=== PATIENT | female | born 1945 | race Caucasian/White ===

== ENCOUNTER 2017-12-19 16:43 | Observation (INO) ==
[2017-12-19] MEDS ORDERED: methylPREDNISolone 125 MG/2 ML VIAL IVP ONE (17:05)
[2017-12-19] MEDS ORDERED: Ipratropium/Albuterol Neb 3 ML IH ONE (17:05)
--- NOTE | 2017-12-19 17:08 | Emergency Department Note ---
Disposition Clinical Impression: Weakness, Shortness of breath, Acute kidney injury, COPD with acute exacerbation Fall Qualifiers: Encounter type: initial encounter Qualified Code(s): W19.XXXA - Unspecified fall, initial encounter Disposition: Admitted As Inpatient Condition: Fair Referrals: Dixie Nielsen CNP [Primary Care Provider] - Forms: ED Satisfaction Letter Time of Disposition: 18:48 General Adult HPI - General Chief complaint: ED Fall Stated complaint: Fall Time Seen by Provider: 12/19/17 16:53 Source: EMS Nursing Notes Reviewed: Yes Vital Signs Reviewed: Yes - History of Present Illness HPI Narrative: 72-year-old female presents from home via EMS for evaluation after fall. She lives at home alone. She was ambulating with her walker and felt weak causing her to fall. She did not hit her head. No loss of consciousness. She denies any injuries. She notes her generalized weakness is exacerbated by her dyspnea which she believes is secondary to her COPD. She has a history of asthma with prolonged exposure to secondhand smoke. She herself has never smoked tobacco. Her concern at this time is shortness of breath. EMS reports the patient had chest pain rated 8/10 which radiated down her right arm with right arm weakness. Patient denies chest pain at this time. She has a history of chronic right arm weakness currently evaluated by neurology and on prednisone. She does have a history of cardiac stent 6. She has a history of COPD on 2 L nasal cannula at baseline with pro-air; these are not improving her dyspnea. She does have a worsening of her chronic cough with clear/white sputum. PMH: COPD on 2 L nasal cannula, pro-air. CAD with ACS status post stent 6. No history of CHF. ROS: Positive: As above Negative: Fever, chills, nausea, vomiting, chest pains, palpitations, diaphoresis, abdominal pain, unusual back pain, neck pain, headache, changes in vision, focal weakness, numbness or tingling. Pain Scale: 5 - Related Data Home Medications Medication Instructions Recorded Confirmed Aspirin 81 mg PO DAILY 12/07/14 11/17/16 Citalopram [CeleXA] 20 mg PO DAILY 12/07/14 11/17/16 Levothyroxine [Synthroid] 100 mcg PO 0630 12/07/14 11/17/16 Meclizine [Antivert] 25 mg PO TID PRN 12/07/14 11/17/16 Nitroglycerin 1 tab SL PRN PRN 12/07/14 11/17/16 Oxybutynin [Ditropan] 5 mg PO BID 12/07/14 11/17/16 Pravastatin Sodium [Pravachol] 80 mg PO HS 12/07/14 11/17/16 Pregabalin [Lyrica] 50 mg PO BID 12/07/14 11/17/16 Ranitidine HCl [Zantac] 150 mg PO BID 12/07/14 11/17/16 Ticagrelor [Brilinta] 90 mg PO BID 12/07/14 11/17/16 TraMADol [Ultram] 50 mg PO Q6HR 12/07/14 11/17/16 Cholecalciferol (Vitamin D3) 1,000 unit PO DAILY 05/01/15 11/17/16 [Vitamin D3] Oxygen 2 l .ROUTE AD 05/01/15 11/17/16 Previous Rx's Medication Instructions Recorded Lactobacillus [Culturelle] 1 each PO BID #6 cap.sprink 07/18/16 HydrOXYzine Pamoate [Vistaril] 50 mg PO TID #30 capsule 03/10/17 Allergies Allergy/AdvReac Type Severity Reaction Status Date / Time budesonide [From Symbicort] Allergy Swelling Verified 12/19/17 16:54 of Lip/Tongue/Throat carvedilol [From Coreg] Allergy Swelling Verified 12/19/17 16:54 of Lip/Tongue/Throat cephalexin [From Keflex] Allergy Swelling Verified 12/19/17 16:54 of Lip/Tongue/Throat ciprofloxacin [From Cipro] Allergy Anaphylaxis Verified 12/19/17 16:54 Formoterol [From Symbicort] Allergy Swelling Verified 12/19/17 16:54 of Lip/Tongue/Throat gabapentin [From Neurontin] Allergy Swelling Verified 12/19/17 16:54 of Lip/Tongue/Throat lisinopril Allergy Headache Verified 12/19/17 16:54 shellfish derived Allergy Anaphylaxis Verified 12/19/17 16:54 Sulfa (Sulfonamide Allergy Hives Verified 12/19/17 16:54 Antibiotics) sulfamethoxazole Allergy Hives Verified 12/19/17 16:54 [From Bactrim] trimethoprim [From Bactrim] Allergy Hives Verified 12/19/17 16:54 venom-honey bee Allergy Anaphylaxis Verified 12/19/17 16:54 [bee venom (honey bee)] metformin AdvReac Dizziness Verified 12/19/17 16:54 IVP DYE Allergy Swelling Uncoded 07/16/16 15:07 of Lip/Tongue/Throat All systems ED: reviewed and negative except as stated. Review of Systems: As Per HPI Past Medical History - Past Medical History Medical history: Reports: asthma, COPD, coronary artery disease, CVA, diabetes, hypertension, renal disease Surgical history: Reports: angioplasty/stent, cholecystectomy, KAYY/BSO Psychiatric history: Reports: depression - Social History Smoking Status: Never smoker Smokeless Tobacco Status: No Alcohol use: Reports: none Drug use: Reports: none Physical Exam Vital Signs Reviewed General: Patient is alert, oriented, and in mild distress-she has 3-4 conversational dyspnea, tachypneic. Head: atraumatic, normocephalic Eye: normal appearance, PERRL, EOMI, no scleral icterus, no conjunctival injection ENT: mucous membranes moist, normal external ear exam Neck: normal inspection, trachea midline, full ROM Chest: normal inspection, symmetric chest rise Respiratory: Good respiratory effort. Prolonged expiratory phase. Poor air entry the bilateral bases with an expiratory wheeze. Bilateral breath sounds equal without crackles or rhonchi. Cardiovascular: Regular rate and rhythm. No clicks, rubs, gallops, or murmors. Normal heart sounds. Bilateral radial and posterior tibial pulses 2/4. No pedal edema. Abdomen: Bowel sounds present normoactive x-4 quadrants. Abdomen is soft, nondistended, and nontender. No guarding or rebound. Musculoskeletal: Spontaneously moving all extremities. Skin: warm, dry, intact. Neuro: Alert and oriented x4. Sensation light touch intact. Psych: Patient's affect is appropriate for situation. - General General appearance: alert, in no apparent distress Course Course Narrative: Patient's chart shows an allergy to formoterol however, she is on pro-air at home which is albuterol. We will provide DuoNeb's in the hospital. Patient's chart shows an allergy to budesonide. She is on prednisone at home. We will provide SoluMedrol IV. EKG dated 12/19/2017 at 16:58 interpreted as sinus tachycardia with a rate of 102. NC 133, QRS 90, QTC 550. Left axis. Right anterior fascicular block. Nonspecific ST-T changes. Compared to previous EKG dated July 15 showing no acute ischemic changes or comparison. Serum hematology is unremarkable. Serum chemistry shows elevation creatinine; acute kidney injury. 500 mL fluid bolus provided. Caution given her cardiac history. BNP is not elevated and she has no physical exam findings of edema. Chest x-ray shows no acute findings. EKG shows no acute ischemic changes. Troponin below upper limit of normal. Patient provided with a triple dose of DuoNeb's as well as 125 mg Solu-Medrol. She did not have allergic reaction. She did have improved air entry however, remains tachypneic with an expiratory wheeze. Clinical suspicion is for acute exacerbation of COPD. I discussed the above the patient. She is agreeable to admission for continued pulmonary support. I discussed the above the admitting hospitalist. He is agreeable to admission. Chest X-Ray 12/19/17 16:56 IMPRESSION: No acute findings. No change. D/ / 12/19/2017 17:58:55 Patrick Mazariegos MD / ivette Interpreting Provider: Patrick Mazariegos MD Vital Signs Temperature 99.9 F H 12/19/17 16:48 Pulse Rate 99 12/19/17 16:48 Respiratory Rate 16 12/19/17 16:48 Blood Pressure 125/79 12/19/17 16:48 O2 Sat by Pulse Oximetry 95 12/19/17 16:48 Temperature 99.9 F H 12/19/17 16:48 Pulse Rate 106 12/19/17 17:53 Respiratory Rate 28 12/19/17 17:53 Blood Pressure 129/80 12/19/17 17:53 O2 Sat by Pulse Oximetry 94 12/19/17 17:53 Oxygen Delivery Oxygen Delivery Nasal Cannula Medical Decision Making - Lab Data Result diagrams: 12/19/17 16:56 12/19/17 16:56 Lab Results 12/19/17 12/19/17 12/19/17 Range/Units 16:56 16:56 16:56 WBC 11.0 (4.3-11.1) K/mcL RBC 4.40 (3.82-4.97) M/mcL Hgb 12.8 (11.5-15.4) g/dL Hct 39.1 (35.3-44.9) % MCV 88.9 (83.0-100.0) fL MCH 29.1 (28.0-33.3) pg MCHC 32.7 (31.6-35.5) g/dL RDW 13.0 (11.5-14.5) % Plt Count 176 (140-400) K/mcL MPV 9.8 (9.4-12.4) fL Immature Gran % 0.5 (0-4) % Seg Neutrophils % 76.5 % Lymphocytes % 11.9 % Monocytes % 10.7 % Eosinophils % 0.1 % Basophils % 0.3 % Neutrophils # 8.4 (1.6-8.9) K/mcL Lymphocytes # 1.3 (0.6-4.6) K/mcL Monocytes # 1.2 (0.0-1.3) K/mcL Eosinophils # 0.0 (0.0-0.6) K/mcL Basophils # 0.0 (0.0-0.2) K/mcL Sodium 134 L (136-145) mEq/L Potassium 4.1 (3.5-5.1) mEq/L Chloride 95 L (98-107) mEq/L Carbon Dioxide 25 (23-29) mEq/L BUN 26 H (8-23) mg/dL Creatinine 2.07 H (0.60-1.20) mg/dL Est GFR ( Amer) 28 L (> 60) Est GFR (Non-Af Amer) 23 L (> 60) BUN/Creatinine Ratio 13 (6-26) Glucose 146 H (70-105) mg/dL Calculated Osmolality 285 (280-300) Lactic Acid (0.5-2.2) mmol/L Calcium 8.6 (8.6-10.3) mg/dL Troponin I < 0.03 (< 0.04) ng/mL B-Natriuretic Peptide 51 (Less than 100) pg/mL 12/19/17 Range/Units 17:03 WBC (4.3-11.1) K/mcL RBC (3.82-4.97) M/mcL Hgb (11.5-15.4) g/dL Hct (35.3-44.9) % MCV (83.0-100.0) fL MCH (28.0-33.3) pg MCHC (31.6-35.5) g/dL RDW (11.5-14.5) % Plt Count (140-400) K/mcL MPV (9.4-12.4) fL Immature Gran % (0-4) % Seg Neutrophils % % Lymphocytes % % Monocytes % % Eosinophils % % Basophils % % Neutrophils # (1.6-8.9) K/mcL Lymphocytes # (0.6-4.6) K/mcL Monocytes # (0.0-1.3) K/mcL Eosinophils # (0.0-0.6) K/mcL Basophils # (0.0-0.2) K/mcL Sodium (136-145) mEq/L Potassium (3.5-5.1) mEq/L Chloride (98-107) mEq/L Carbon Dioxide (23-29) mEq/L BUN (8-23) mg/dL Creatinine (0.60-1.20) mg/dL Est GFR ( Amer) (> 60) Est GFR (Non-Af Amer) (> 60) BUN/Creatinine Ratio (6-26) Glucose (70-105) mg/dL Calculated Osmolality (280-300) Lactic Acid 1.3 (0.5-2.2) mmol/L Calcium (8.6-10.3) mg/dL Troponin I (< 0.04) ng/mL B-Natriuretic Peptide (Less than 100) pg/mL
--- NOTE | 2017-12-19 17:12 | Emergency Department Note ---
Disposition Clinical Impression: Weakness, Shortness of breath, Acute kidney injury, COPD with acute exacerbation Fall Qualifiers: Encounter type: initial encounter Qualified Code(s): W19.XXXA - Unspecified fall, initial encounter Disposition: Admitted As Inpatient Condition: Fair Referrals: Dixie Nielsen CNP [Primary Care Provider] - Forms: ED Satisfaction Letter General Adult HPI - General Chief complaint: ED Fall Stated complaint: Fall Time Seen by Provider: 12/19/17 16:53 Source: EMS - History of Present Illness Pain Scale: 5 - Related Data Home Medications Medication Instructions Recorded Confirmed Aspirin 81 mg PO DAILY 12/07/14 11/17/16 Citalopram [CeleXA] 20 mg PO DAILY 12/07/14 11/17/16 Levothyroxine [Synthroid] 100 mcg PO 0630 12/07/14 11/17/16 Meclizine [Antivert] 25 mg PO TID PRN 12/07/14 11/17/16 Nitroglycerin 1 tab SL PRN PRN 12/07/14 11/17/16 Oxybutynin [Ditropan] 5 mg PO BID 12/07/14 11/17/16 Pravastatin Sodium [Pravachol] 80 mg PO HS 12/07/14 11/17/16 Pregabalin [Lyrica] 50 mg PO BID 12/07/14 11/17/16 Ranitidine HCl [Zantac] 150 mg PO BID 12/07/14 11/17/16 Ticagrelor [Brilinta] 90 mg PO BID 12/07/14 11/17/16 TraMADol [Ultram] 50 mg PO Q6HR 12/07/14 11/17/16 Cholecalciferol (Vitamin D3) 1,000 unit PO DAILY 05/01/15 11/17/16 [Vitamin D3] Oxygen 2 l .ROUTE AD 05/01/15 11/17/16 Previous Rx's Medication Instructions Recorded Lactobacillus [Culturelle] 1 each PO BID #6 cap.sprink 07/18/16 HydrOXYzine Pamoate [Vistaril] 50 mg PO TID #30 capsule 03/10/17 Allergies Allergy/AdvReac Type Severity Reaction Status Date / Time budesonide [From Symbicort] Allergy Swelling Verified 12/19/17 16:54 of Lip/Tongue/Throat carvedilol [From Coreg] Allergy Swelling Verified 12/19/17 16:54 of Lip/Tongue/Throat cephalexin [From Keflex] Allergy Swelling Verified 12/19/17 16:54 of Lip/Tongue/Throat ciprofloxacin [From Cipro] Allergy Anaphylaxis Verified 12/19/17 16:54 Formoterol [From Symbicort] Allergy Swelling Verified 12/19/17 16:54 of Lip/Tongue/Throat gabapentin [From Neurontin] Allergy Swelling Verified 12/19/17 16:54 of Lip/Tongue/Throat lisinopril Allergy Headache Verified 12/19/17 16:54 shellfish derived Allergy Anaphylaxis Verified 12/19/17 16:54 Sulfa (Sulfonamide Allergy Hives Verified 12/19/17 16:54 Antibiotics) sulfamethoxazole Allergy Hives Verified 12/19/17 16:54 [From Bactrim] trimethoprim [From Bactrim] Allergy Hives Verified 12/19/17 16:54 venom-honey bee Allergy Anaphylaxis Verified 12/19/17 16:54 [bee venom (honey bee)] metformin AdvReac Dizziness Verified 12/19/17 16:54 IVP DYE Allergy Swelling Uncoded 07/16/16 15:07 of Lip/Tongue/Throat Past Medical History - Past Medical History Medical history: Reports: asthma, COPD, coronary artery disease, CVA, diabetes, hypertension, renal disease Surgical history: Reports: angioplasty/stent, cholecystectomy, KAYY/BSO Psychiatric history: Reports: depression - Social History Smoking Status: Never smoker Smokeless Tobacco Status: No Alcohol use: Reports: none Drug use: Reports: none Physical Exam - General General appearance: alert, in no apparent distress Course Vital Signs Temperature 99.9 F H 12/19/17 16:48 Pulse Rate 99 12/19/17 16:48 Respiratory Rate 16 12/19/17 16:48 Blood Pressure 125/79 12/19/17 16:48 O2 Sat by Pulse Oximetry 95 12/19/17 16:48 Temperature 99.9 F H 12/19/17 16:48 Pulse Rate 106 12/19/17 17:53 Respiratory Rate 28 12/19/17 17:53 Blood Pressure 129/80 12/19/17 17:53 O2 Sat by Pulse Oximetry 94 12/19/17 17:53 Oxygen Delivery Oxygen Delivery Nasal Cannula Medical Decision Making - Lab Data Result diagrams: 12/19/17 16:56 12/19/17 16:56 Lab Results 12/19/17 12/19/17 12/19/17 Range/Units 16:56 16:56 16:56 WBC 11.0 (4.3-11.1) K/mcL RBC 4.40 (3.82-4.97) M/mcL Hgb 12.8 (11.5-15.4) g/dL Hct 39.1 (35.3-44.9) % MCV 88.9 (83.0-100.0) fL MCH 29.1 (28.0-33.3) pg MCHC 32.7 (31.6-35.5) g/dL RDW 13.0 (11.5-14.5) % Plt Count 176 (140-400) K/mcL MPV 9.8 (9.4-12.4) fL Immature Gran % 0.5 (0-4) % Seg Neutrophils % 76.5 % Lymphocytes % 11.9 % Monocytes % 10.7 % Eosinophils % 0.1 % Basophils % 0.3 % Neutrophils # 8.4 (1.6-8.9) K/mcL Lymphocytes # 1.3 (0.6-4.6) K/mcL Monocytes # 1.2 (0.0-1.3) K/mcL Eosinophils # 0.0 (0.0-0.6) K/mcL Basophils # 0.0 (0.0-0.2) K/mcL Sodium 134 L (136-145) mEq/L Potassium 4.1 (3.5-5.1) mEq/L Chloride 95 L (98-107) mEq/L Carbon Dioxide 25 (23-29) mEq/L BUN 26 H (8-23) mg/dL Creatinine 2.07 H (0.60-1.20) mg/dL Est GFR ( Amer) 28 L (> 60) Est GFR (Non-Af Amer) 23 L (> 60) BUN/Creatinine Ratio 13 (6-26) Glucose 146 H (70-105) mg/dL Calculated Osmolality 285 (280-300) Lactic Acid (0.5-2.2) mmol/L Calcium 8.6 (8.6-10.3) mg/dL Troponin I < 0.03 (< 0.04) ng/mL B-Natriuretic Peptide 51 (Less than 100) pg/mL 12/19/17 Range/Units 17:03 WBC (4.3-11.1) K/mcL RBC (3.82-4.97) M/mcL Hgb (11.5-15.4) g/dL Hct (35.3-44.9) % MCV (83.0-100.0) fL MCH (28.0-33.3) pg MCHC (31.6-35.5) g/dL RDW (11.5-14.5) % Plt Count (140-400) K/mcL MPV (9.4-12.4) fL Immature Gran % (0-4) % Seg Neutrophils % % Lymphocytes % % Monocytes % % Eosinophils % % Basophils % % Neutrophils # (1.6-8.9) K/mcL Lymphocytes # (0.6-4.6) K/mcL Monocytes # (0.0-1.3) K/mcL Eosinophils # (0.0-0.6) K/mcL Basophils # (0.0-0.2) K/mcL Sodium (136-145) mEq/L Potassium (3.5-5.1) mEq/L Chloride (98-107) mEq/L Carbon Dioxide (23-29) mEq/L BUN (8-23) mg/dL Creatinine (0.60-1.20) mg/dL Est GFR ( Amer) (> 60) Est GFR (Non-Af Amer) (> 60) BUN/Creatinine Ratio (6-26) Glucose (70-105) mg/dL Calculated Osmolality (280-300) Lactic Acid 1.3 (0.5-2.2) mmol/L Calcium (8.6-10.3) mg/dL Troponin I (< 0.04) ng/mL B-Natriuretic Peptide (Less than 100) pg/mL Attestation Statement - Attestation Attestation: I examined this patient and my medical decision-making was reviewed with the Resident Physician. I agree with the documented findings, disposition and treatment plan as described except to the extent set forth below. Patient presents to the ED with generalized weakness and shortness of breath. Patient states she has been weak. She missed step today with her cane. She fell backwards onto her bottom. Patient states she was too weak to get up so she can her life alert button. Denies hitting her head. Denies injury. No back or neck pain. Patient states she short of breath. She complained of chest pain EMS but denies after us. Patient has a history of COPD. On examination she is in no distress. Awake alert oriented. Moving all extremities. Abdomen soft. Lungs with expiratory wheezing. Plan. Patient appears to have a COPD exacerbation. Nebs steroids. Weakness workup. Patient lives alone. Concern for her safety. Patient received IV hydration for her AK I. Admitting to medicine.
[2017-12-19 17:17] LABS: Basophils % 0.3 %; Eosinophils % 0.1 %; Hematocrit 39.1 % (35.3-44.9); Hemoglobin 12.8 g/dL (11.5-15.4); Immature Granulocytes % 0.5 % (0-4); Lymphocytes # 1.3 K/mcL (0.6-4.6); Lymphocytes % 11.9 %; Mean Corpuscular HGB Conc 32.7 g/dL (31.6-35.5); Mean Corpuscular Hemoglobin 29.1 pg (28.0-33.3); Mean Corpuscular Volume 88.9 fL (83.0-100.0); Mean Platelet Volume 9.8 fL (9.4-12.4); Monocytes # 1.2 K/mcL (0.0-1.3); Monocytes % 10.7 %; Neutrophils # 8.4 K/mcL (1.6-8.9); Platelet Count 176 K/mcL (140-400); Segmented Neutrophils % 76.5 %
[2017-12-19 17:36] LABS: BUN/Creatinine Ratio 13 (6-26); Blood Urea Nitrogen 26 mg/dL (8-23); Calcium 8.6 mg/dL (8.6-10.3); Carbon Dioxide 25 mEq/L (23-29); Chloride 95 mEq/L (98-107); Glucose 146 mg/dL (70-105); Osmolality,Calculated 285 (280-300); Potassium 4.1 mEq/L (3.5-5.1); Sodium 134 mEq/L (136-145); eGFR For Non-African Americans 23 (> 60)
[2017-12-19 17:37] LABS: Troponin I < 0.03 ng/mL (< 0.04)
[2017-12-19] MEDS ORDERED: 0.9 % Sodium Chloride 500 ML IVC ONE (18:45)
[2017-12-20] MEDS ORDERED: Naloxone 0.4 MG/ML INJ IVP PRN (00:14)
[2017-12-20] MEDS ORDERED: 0.9 % Sodium Chloride 1,000 ML IVC ONE (00:19)
[2017-12-20 01:51] LABS: Bilirubin,Urine Negative (Negative); Blood,Urine Negative (Negative); Clarity,Urine Cloudy (Clear); Color,Urine Yellow (Yellow); Glucose,Urine (UA) Normal (Normal); Ketones,Urine Negative (Negative); Leukocyte Esterase,Urine Moderate (Negative); Nitrite,Urine Negative (Negative); PH,Urine 5.5 pH Units (5.0-8.0); Protein,Urine Negative (Neg-Trace); Specific Gravity,Urine 1.016 (1.010-1.025); Urobilinogen,Urine Normal (Normal)
[2017-12-20 01:53] LABS: Bacteria,Urine Many per hpf (None-Few); Hyaline Casts,Urine None Seen per lpf (None-Few); RBC,Urine 0-3 per hpf (0-3); Squamous Epithelial Cell,Urine Many per lpf (None-Few); WBC,Urine 50-100 per hpf (0-3)
[2017-12-20] MEDS: Ipratropium/Albuterol Neb 3 ML IH SCH ×4 (04:22→22:33)
[2017-12-20] MEDS: *HR* Heparin 5,000 UNIT/ML VIAL SQ SCH ×2 (05:12→16:52)
--- NOTE | 2017-12-20 06:29 | Internal Med History&Physical ---
Date of Encounter: 12/19/17 Time of Encounter: 23:30 Internal Medicine - H&P: HPI Chief complaint: COPD exacerbation Admitted From: Emergency Dept Plans for Post Hospital Care: Home History of present illness: Ms. Busby is a 72 year old female Patient was at home, has had increased weakness due to shortness of breath which resulted in a fall. She says that she had gotten up and went to her kitchen to get something to eat and felt weak so she went to laid down for a bit. Afterwards she went back to her kitchen and again felt weak but this time had a fall, stating that her legs folded up underneath her and she went down. She denies hitting her head and losing consciousness. She says this has happened to her before about 6 months ago in a similar way. She states that she feels more weak as she has shortness of breath. She denies chest pain currently but had some about 3 days ago. She has history of a stroke about 2 years ago and has been on Brilinta and aspirin. She has residual right arm weakness since her last stroke. She came to the emergency room for further evaluation. In the ER CBC was within normal limits. Vital signs are stable with a slightly elevated temperature of 99.9. BMP showed elevated BUN and creatinine, though patient has a history of chronic kidney disease. EKG was performed showed normal sinus rhythm with a QTC of 550. There are no ST changes and no changes from her previous EKGs on file. Chest x-ray showed no acute findings. She was given a 500 mL saline bolus as well as duo nebs and sent to the medical floor for further management. Upon my evaluation patient states that she has a history of 6 cardiac stents, and has a baseline oxygen requirement of 2 L all the time. She has inhalers at home but they were not helping her. She denies nausea, vomiting, fever, chills and abdominal pain. She has a history of chronic kidney disease and does follow-up with nephrology. Past Med Surg Social Fam HX - Past Medical History Medical history: asthma, COPD, coronary artery disease, CVA, diabetes, hypertension, renal disease Additional medical history: CVA " years ago" with right sided weakenss Psychiatric history: depression - Past Surgical History Surgical History: angioplasty/stent, cholecystectomy, KAYY/BSO Additional surgical history: heart stent x5. Hysterectomy - Social History Smoking Status: Never smoker Smokeless Tobacco Status: No Alcohol use: none Drug use: none - Family History Father Adopted: No Age: 86 Living Status: Hx Family Cardiac Disorders: No Hx Family Respiratory Disorders: Yes Hx Family Cancer: No Hx Family GI Disorders: No Hx Family Genitourinary Disorders: No Hx Family Endocrine Disorder: No Hx Family Musculoskeletal Disorders: No Hx Family Neuromuscular Disorders: No Hx Family Neurologic Disorders: No Hx Family HEENT Disorders: No Hx Family Autoimmune Disorders: No Hx Family Reproductive Disorders: No Hx Family Psychosocial Disorders: No Hx Family Medical Disorders: No Internal Medicine - H&P: Meds Aspirin 81 mg PO DAILY 12/07/14 [History] Citalopram [CeleXA] 20 mg PO DAILY 12/07/14 [History] Levothyroxine [Synthroid] 100 mcg PO 0630 12/07/14 [History] Meclizine [Antivert] 25 mg PO TID PRN 12/07/14 [History] Nitroglycerin 1 tab SL PRN PRN 12/07/14 [History] Oxybutynin [Ditropan] 5 mg PO BID 12/07/14 [History] Pravastatin Sodium [Pravachol] 80 mg PO HS 12/07/14 [History] Pregabalin [Lyrica] 50 mg PO BID 12/07/14 [History] Ranitidine HCl [Zantac] 150 mg PO BID 12/07/14 [History] Ticagrelor [Brilinta] 90 mg PO BID 12/07/14 [History] TraMADol [Ultram] 50 mg PO Q6HR 12/07/14 [History] Cholecalciferol (Vitamin D3) [Vitamin D3] 1,000 unit PO DAILY 05/01/15 [History] Oxygen 2 l .ROUTE AD 05/01/15 [History] Lactobacillus [Culturelle] 1 each PO BID #6 cap.sprink 07/18/16 [Rx] HydrOXYzine Pamoate [Vistaril] 50 mg PO TID #30 capsule 03/10/17 [Rx] Allergy/AdvReac Type Severity Reaction Status Date / Time budesonide [From Symbicort] Allergy Swelling Verified 12/19/17 16:54 of Lip/Tongue/Throat carvedilol [From Coreg] Allergy Swelling Verified 12/19/17 16:54 of Lip/Tongue/Throat cephalexin [From Keflex] Allergy Swelling Verified 12/19/17 16:54 of Lip/Tongue/Throat ciprofloxacin [From Cipro] Allergy Anaphylaxis Verified 12/19/17 16:54 gabapentin [From Neurontin] Allergy Swelling Verified 12/19/17 16:54 of Lip/Tongue/Throat lisinopril Allergy Headache Verified 12/19/17 16:54 shellfish derived Allergy Anaphylaxis Verified 12/19/17 16:54 Sulfa (Sulfonamide Allergy Hives Verified 12/19/17 16:54 Antibiotics) sulfamethoxazole Allergy Hives Verified 12/19/17 16:54 [From Bactrim] trimethoprim [From Bactrim] Allergy Hives Verified 12/19/17 16:54 venom-honey bee Allergy Anaphylaxis Verified 12/19/17 16:54 [bee venom (honey bee)] metformin AdvReac Dizziness Verified 12/19/17 16:54 IVP DYE Allergy Swelling Uncoded 07/16/16 15:07 of Lip/Tongue/Throat All Systems PM: A 10-system review of systems was performed and is negative for pertinent findings except as documented above in the HPI. - Constitutional Vitals: Temp Pulse Resp BP Pulse Ox 97.8 F 74 18 117/63 94 12/20/17 03:50 12/20/17 03:50 12/20/17 04:22 12/20/17 03:50 12/20/17 04:22 General appearance: Present: cooperative, A&O X 3, pleasant, no acute distress, answers questions appropriately Exam: As above - Head Head exam: Present: normal inspection - Eye Eye exam: Present: EOMI, normal appearance - Neck Neck exam general surgery: Absent: tenderness - Respiratory Respiratory exam: Present: wheezes. Absent: chest wall tenderness, decreased breath sounds, CTAB, rales, respiratory distress, rhonchi Additional comments: Mild wheezes - Cardiovascular Cardiovascular exam: Present: RRR. Absent: diastolic murmur, systolic murmur - GI/Abdominal GI/Abdominal exam: Present: normal bowel sounds, soft. Absent: tenderness - Extremities Exam Extremities exam: Present: warm, radial pulses palpable and symmetrical. Absent: calf tenderness, pedal edema, tenderness - Neurological Exam Neurological exam: Present: motor sensory deficit, no focal deficits. 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 Chronic, no change from baseline - Skin Skin exam: Present: dry, normal color, warm Internal Med - H&P Results - Labs CBC & Chem 7: 12/19/17 16:56 12/19/17 16:56 Labs: Short CBC 12/19/17 Range/Units 16:56 WBC 11.0 (4.3-11.1) K/mcL Hgb 12.8 (11.5-15.4) g/dL Hct 39.1 (35.3-44.9) % Plt Count 176 (140-400) K/mcL Neutrophils # 8.4 (1.6-8.9) K/mcL BMP 12/19/17 16:56 Sodium 134 L Potassium 4.1 Chloride 95 L Carbon Dioxide 25 BUN 26 H Creatinine 2.07 H Glucose 146 H Calcium 8.6 Cardiac Enzymes 12/19/17 Range/Units 16:56 Troponin I < 0.03 (< 0.04) ng/mL Urine 12/20/17 Range/Units 01:40 Urine Color Yellow (Yellow) Urine Clarity Cloudy A (Clear) Urine pH 5.5 (5.0-8.0) pH Units Ur Specific [place] 1.016 (1.010-1.025) Urine Protein Negative (Neg-Trace) mg/dL Urine Glucose (UA) Normal (Normal) mg/dL - Impressions ITS Impressions Chest X-Ray 12/19/17 16:56 IMPRESSION: No acute findings. No change. D/ : / 12/19/2017 17:58:55 Patrick Mazariegos MD / ivette Interpreting Provider: Patrick Mazariegos MD - Assessment and plan (1) COPD with acute exacerbation Current Visit: Yes Status: Acute Assessment and plan: Patient has felt increasingly short of breath, causing her to feel weak. She feels better after breathing treatments provided in the ER. Continue oxygen supplementation Continue DuoNeb nebs and albuterol Prednisone 40 mg daily (2) Weakness Current Visit: Yes Status: Acute Assessment and plan: Secondary to shortness of breath Treatment as above PT and OT evaluation (3) Fall Current Visit: Yes Status: Acute Assessment and plan: Patient had a fall at home, which she states is secondary to weakness that she feels when she gets short of breath. Treatment as above Qualifiers: Encounter type: initial encounter Qualified Code(s): W19.XXXA - Unspecified fall, initial encounter (4) Shortness of breath Current Visit: Yes Status: Acute Assessment and plan: Secondary to COPD exacerbation Treatment as above (5) Acute kidney injury superimposed on chronic kidney disease Current Visit: Yes Status: Acute Assessment and plan: Patient has baseline chronic kidney disease stage III, currently has an acute injury. Patient received 500 mL IV fluid bolus in the ER, along with an addit ional liter upon arrival to the floor. Repeat labs in the morning (6) QT prolongation Current Visit: Yes Status: Acute Assessment and plan: Prolonged QT interval on EKG. Will avoid QT prolonging medications including azithromycin. Patient takes hydroxyzine and Celexa as well, which I will hold at this time. (7) Hypothyroidism Current Visit: Yes Status: Acute Assessment and plan: Continue home meds Qualifiers: Hypothyroidism type: acquired Qualified Code(s): E03.9 - Hypothyroidism, unspecified (8) DVT prophylaxis Current Visit: Yes Status: Acute Assessment and plan: Subcutaneous heparin - Time Spent With Patient Total time spent is greater than 50% in coordination of care (as documented) at patient's floor/unit and/or counseling patient: Greater than 35 minutes
[2017-12-20] MEDS ORDERED: D5% in Water 1,000 ML IVC PRN (06:54)
[2017-12-20] MEDS ORDERED: *HR* Dextrose 50 % in Water (Syg) 50 ML SYRINGE IVP PRN (06:54)
[2017-12-20] MEDS ORDERED: Dextrose Gel 15 GM/37.5 ML TUBE PO PRN ×2 (06:54)
[2017-12-20 07:56] LABS: Hematocrit 36.7 % (35.3-44.9); Hemoglobin 11.9 g/dL (11.5-15.4); Mean Corpuscular HGB Conc 32.4 g/dL (31.6-35.5); Mean Corpuscular Hemoglobin 29.2 pg (28.0-33.3); Mean Corpuscular Volume 90.2 fL (83.0-100.0); Mean Platelet Volume 10.1 fL (9.4-12.4); Platelet Count 173 K/mcL (140-400); Red Blood Count 4.07 M/mcL (3.82-4.97)
[2017-12-20 08:09] LABS: Calcium 8.8 mg/dL (8.6-10.3); Potassium 4.4 mEq/L (3.5-5.1)
[2017-12-20] MEDS: *HR* Ticagrelor 90 MG TABLET PO SCH ×2 (10:06→20:36)
[2017-12-20] MEDS: predniSONE 20 MG TABLET PO SCH (10:06)
[2017-12-20] MEDS: Aspirin 81 MG TAB.CHEW PO SCH (10:06)
[2017-12-20] MEDS: Insulin LISPRO 300 UNITS/3 ML VIAL SQ SCH ×3 (10:12→16:53)
--- NOTE | 2017-12-20 11:08 | Internal Med Progress Note ---
Hospitalist Progress Note - Encounter Date of Encounter: 12/20/17 Time of Encounter: 11:08 - Subjective Interval History: Seen and evaluated at the bedside 72-year-old female who was admitted and being managed for COPD exacerbation Incidental finding of prolonged QT and acute on chronic kidney injury She denies new complains on eval and requesting her home psych meds She is otherwise stable and has no new complains - Exam Vitals: Temp Pulse Resp BP Pulse Ox 98.0 F 94 16 101/60 95 12/20/17 08:26 12/20/17 08:26 12/20/17 09:52 12/20/17 08:26 12/20/17 09:52 Exam: Gen: Afebrile, vital signs are stable, not in any form of distress laying flat HEENT: Moist oral mucosa, not jaundiced, not pale, not cyanotic Head: Atraumatic Chest: equal chest movement bilaterally Respiratory: CTAB, no wheezing at this time Heart: S1/S2 no murmurs, gallops or rubs Abdomen: Flat soft and non-tender no palpable organomegaly Extremities: no pedal edema. - Assessment and Plan (1) Acute kidney injury superimposed on chronic kidney disease Current Visit: Yes Status: Acute Assessment and Plan: Baseline cr is at 1.1 Presented with Cr of 2.0 Improved to 1.48 with IVF Continue to monitor Avoid nephrotoxins (2) COPD with acute exacerbation Current Visit: Yes Status: Acute Assessment and Plan: Patient has felt increasingly short of breath, causing her to feel weak. She feels better after breathing treatments provided in the ER. Continue oxygen supplementation Continue DuoNeb nebs and albuterol Continue Prednisone 40 mg daily CXR is without infiltrates (3) DVT prophylaxis Current Visit: Yes Status: Acute Assessment and Plan: SQ heparin (4) Fall Current Visit: Yes Status: Acute Assessment and Plan: Patient had a fall at home, which she states is secondary to weakness that she feels when she gets short of breath. PT and OT evaluation (5) Hypothyroidism Current Visit: Yes Status: Chronic Assessment and Plan: resume home meds (6) QT prolongation Current Visit: Yes Status: Acute Assessment and Plan: Prolonged QT interval on EKG, QTC of 550 on EKG done in ER STAT repeat EKG ordered Patient on multiple psych meds, hold till evaluation of repeat EKG (7) Weakness Current Visit: Yes Status: Acute Assessment and Plan: PTOT eval Up ad esteban prn (8) Coronary artery disease Current Visit: Yes Status: Acute Assessment and Plan: Continue ASA, Brilinta, Lipitor, Not on BB due to allergies - Time Spent with Patient Total time spent is greater than 50% in coordination of care (as documented) at patient's floor/unit and/or counseling patient: Plan of Care Discussed with: patient Internal Medicine: Result - Labs CBC & Chem 7: 12/20/17 07:26 12/20/17 07:26 Labs: Short CBC 12/19/17 12/20/17 Range/Units 16:56 07:26 WBC 11.0 9.8 (4.3-11.1) K/mcL Hgb 12.8 11.9 (11.5-15.4) g/dL Hct 39.1 36.7 (35.3-44.9) % Plt Count 176 173 (140-400) K/mcL Neutrophils # 8.4 (1.6-8.9) K/mcL BMP 12/19/17 12/20/17 16:56 07:26 Sodium 134 L 135 L Potassium 4.1 4.4 Chloride 95 L 106 Carbon Dioxide 25 21 L BUN 26 H 31 H Creatinine 2.07 H 1.48 H Glucose 146 H 276 H Calcium 8.6 8.8 Cardiac Enzymes 12/19/17 Range/Units 16:56 Troponin I < 0.03 (< 0.04) ng/mL Urine 12/20/17 Range/Units 01:40 Urine Color Yellow (Yellow) Urine Clarity Cloudy A (Clear) Urine pH 5.5 (5.0-8.0) pH Units Ur Specific [place] 1.016 (1.010-1.025) Urine Protein Negative (Neg-Trace) mg/dL Urine Glucose (UA) Normal (Normal) mg/dL - Impressions Impressions Chest X-Ray 12/19/17 16:56 IMPRESSION: No acute findings. No change. D/ : / 12/19/2017 17:58:55 Patrick Mazariegos MD / ivette Interpreting Provider: Patrick Mazariegos MD Consult Discharge Plan - Plan Referrals: Dixie Nielsen, FULL DECATOR OPERATOR [Primary Care Provider] - (4) Fall Qualifiers: Encounter type: initial encounter Qualified Code(s): W19.XXXA - Unspecified fall, initial encounter (5) Hypothyroidism Qualifiers: Hypothyroidism type: acquired Qualified Code(s): E03.9 - Hypothyroidism, unspecified (8) Coronary artery disease Qualifiers: Coronary Disease-Associated Artery/Lesion type: [place] artery [place] vs. transplanted heart: [place] heart Associated angina: without angina Qualified Code(s): I25.10 - Atherosclerotic heart disease of [place] coronary artery without angina pectoris
[2017-12-20] MEDS ORDERED: Nitroglycerin 0.4 MG TAB.SUBL SL PRN (11:26)
[2017-12-20] MEDS: hydrOXYzine pamoate 25 MG CAPSULE PO SCH ×3 (13:23→20:35)
[2017-12-20] MEDS: Famotidine 20 MG TABLET PO SCH ×2 (13:23→20:36)
[2017-12-20] MEDS: traMADol 50 MG TABLET PO SCH ×2 (13:23→16:53)
[2017-12-20] MEDS: Pregabalin 50 MG CAPSULE PO SCH ×2 (13:23→20:36)
[2017-12-20] MEDS: Cholecalciferol (D-3) 1,000 UNIT TABLET PO SCH (13:23)
[2017-12-20] MEDS: Lactobacillus 1 EACH CAP.SPRINK PO SCH ×2 (13:23→20:36)
[2017-12-20] MEDS ORDERED: Insulin LISPRO 300 UNITS/3 ML VIAL SQ SCH (21:00)
[2017-12-21] MEDS: traMADol 50 MG TABLET PO SCH ×2 (00:33→05:14)
[2017-12-21] MEDS: Ipratropium/Albuterol Neb 3 ML IH SCH ×2 (04:46→10:32)
[2017-12-21] MEDS: *HR* Heparin 5,000 UNIT/ML VIAL SQ SCH (05:14)
[2017-12-21] MEDS ORDERED: Albuterol 2.5 MG/3 ML NEBULIZER IH PRN (08:01)
[2017-12-21] MEDS ORDERED: traMADol 50 MG TABLET PO PRN (08:01)
[2017-12-21 09:32] LABS: Basophils % 0.1 %; Eosinophils % 0.1 %; Hematocrit 36.7 % (35.3-44.9); Hemoglobin 12.1 g/dL (11.5-15.4); Immature Granulocytes % 0.4 % (0-4); Lymphocytes # 1.5 K/mcL (0.6-4.6); Lymphocytes % 11.3 %; Mean Corpuscular Volume 90.8 fL (83.0-100.0); Mean Platelet Volume 10.5 fL (9.4-12.4); Monocytes # 0.8 K/mcL (0.0-1.3); Monocytes % 6.1 %; Platelet Count 188 K/mcL (140-400); Red Blood Count 4.04 M/mcL (3.82-4.97); Red Cell Distribution Width 13.3 % (11.5-14.5)
[2017-12-21] MEDS: hydrOXYzine pamoate 25 MG CAPSULE PO SCH (09:39)
[2017-12-21] MEDS: predniSONE 20 MG TABLET PO SCH (09:39)
[2017-12-21] MEDS: Lactobacillus 1 EACH CAP.SPRINK PO SCH (09:39)
[2017-12-21] MEDS: *HR* Ticagrelor 90 MG TABLET PO SCH (09:39)
[2017-12-21] MEDS: Insulin LISPRO 300 UNITS/3 ML VIAL SQ SCH ×2 (09:39→11:53)
[2017-12-21] MEDS: Pregabalin 50 MG CAPSULE PO SCH (09:39)
[2017-12-21] MEDS: Cholecalciferol (D-3) 1,000 UNIT TABLET PO SCH (09:39)
[2017-12-21] MEDS: Aspirin 81 MG TAB.CHEW PO SCH (09:39)
[2017-12-21 09:52] LABS: Calcium 9.1 mg/dL (8.6-10.3); Potassium 3.7 mEq/L (3.5-5.1)
[2017-12-21 10:58] LABS: Estimated Average Glucose 146 mg/dl; Hemoglobin A1C 6.7 %
[2017-12-21 11:28] VITALS: BP 131/67
[2017-12-21 11:42] LABS: Estimated Average Glucose 146 mg/dl; Hemoglobin A1C 6.7 %
--- NOTE | 2017-12-21 12:37 | Discharge Summary ---
- NOTES TO OUTPATIENT PROVIDER Notes to Outpatient Provider: Patient is admitted and being managed for COPD exacerbation, incidental finding of prolonged QT, acute on chronic kidney injury. She has made significant improvement in her respiratory status, renal function is progressing towards baseline, QTC has normalized after holding her psych meds. She is discharged home with steroid taper and with home health recommendation by physical and occupational therapy. Follow-up with primary care physician Orders not resulted at time of discharge: Pending orders 12/20/17 01:40 Urinalysis Reflex Cult & Micro [URIN] Stat 12/20/17 07:27 Hgb A1C Routine 12/21/17 06:00 EKG [ECG 12 lead ECG] [ECG] AM 0600 12/22/17 04:00 Chem 7 [Basic Metabolic Panel] AM 0400 Complete Blood Count [HEME] AM 0400 Date of Encounter: 12/21/17 Time of Encounter: 12:37 - Discharge Diagnosis (1) Acute kidney injury superimposed on chronic kidney disease Priority: Primary Status: Acute Assessment and Plan: Baseline cr is at 1.1 Presented with Cr of 2.0 Improved to 1.25 with IVF Continue to monitor Follow up with PCP (2) COPD with acute exacerbation Priority: Primary Status: Acute Assessment and Plan: Patient has felt increasingly short of breath, causing her to feel weak. She feels better after breathing treatments provided in the ER. Continue oxygen supplementation Continue DuoNeb nebs and albuterol Continue Prednisone 40 mg daily, discharged home with same CXR is without infiltrates (3) DVT prophylaxis Priority: Primary Status: Resolved (4) Fall Priority: Primary Status: Acute Assessment and Plan: Patient had a fall at home, which she states is secondary to weakness that she feels when she gets short of breath. PT and OT evaluation recommended home health Qualifiers: Encounter type: initial encounter Qualified Code(s): W19.XXXA - Unspecified fall, initial encounter (5) Hypothyroidism Priority: Secondary Status: Chronic Assessment and Plan: continue home meds Qualifiers: Hypothyroidism type: acquired Qualified Code(s): E03.9 - Hypothyroidism, unspecified (6) QT prolongation Priority: Primary Status: Resolved Assessment and Plan: Prolonged QT interval on EKG, QTC of 550 on EKG done in ER Reepat QTc done today 323 Will resume home meds at discharge (7) Weakness Priority: Primary Status: Acute Assessment and Plan: PTOT eval recommended home health (8) Coronary artery disease Priority: Secondary Status: Chronic Assessment and Plan: Continue ASA, Brilinta, Lipitor, Not on BB due to allergies Qualifiers: Coronary Disease-Associated Artery/Lesion type: [place] artery [place] vs. transplanted heart: [place] heart Associated angina: without angina Qualified Code(s): I25.10 - Atherosclerotic heart disease of [place] coronary artery without angina pectoris Hospital course: Ms. Busby is a 72 year old female Patient was admitted and being managed for COPD exacerbation, incidental finding of prolonged QT, acute on chronic kidney injury. She has made significant improvement in her respiratory status, renal function is progressing towards baseline, QTC has normalized after holding her psych meds. She is discharged home with steroid taper and with home health recommendation by physical and occupational therapy. Follow-up with primary care physician See each diagnosis for more details Discharge discussed with: patient, nurse - Time Spent with Patient Total time spent providing and/or coordinating discharge services: Less than 30 minutes - Discharge Medications Home Medications: Aspirin 81 mg PO DAILY 12/07/14 [History] Nitroglycerin 1 tab SL PRN PRN 12/07/14 [History] Oxygen 2.5 l .ROUTE AD 05/01/15 [History] Acetaminophen [Tylenol Arthritis] 650 mg PO DAILY PRN 12/21/17 [History] Albuterol Sulfate [Albuterol Inhaler] 2 puff IH BID PRN 12/21/17 [History] Cetirizine HCl 10 mg PO DAILY 12/21/17 [History] Cholecalciferol (D-3) [Vitamin D] 2,000 unit PO DAILY 12/21/17 [History] Citalopram Hydrobromide [Citalopram HBr] 20 mg PO DAILY 12/21/17 [History] Cyclobenzaprine HCl 5 mg PO HS PRN 12/21/17 [History] Fluticasone Propionate Nasal [Flonase] 100 mcg NS HS 12/21/17 [History] Levothyroxine [Synthroid] 100 mcg PO 0630 12/21/17 [History] Meclizine HCl [Verticalm] 25 mg PO DAILY PRN 12/21/17 [History] Montelukast [Singulair] 10 mg PO DAILY 12/21/17 [History] Oxybutynin [Ditropan] 5 mg PO DAILY 12/21/17 [History] Pregabalin [Lyrica] 75 mg PO BID 12/21/17 [History] Ranitidine HCl [Heartburn Relief] 150 mg PO BID 12/21/17 [History] Ticagrelor [Brilinta] 90 mg PO BID 12/21/17 [History] Tramadol HCl [Ultram] 50 mg PO BID PRN 12/21/17 [History] Allergies/Adverse Reactions: Allergy/AdvReac Type Severity Reaction Status Date / Time budesonide [From Symbicort] Allergy Swelling Verified 12/19/17 16:54 of Lip/Tongue/Throat carvedilol [From Coreg] Allergy Swelling Verified 12/19/17 16:54 of Lip/Tongue/Throat cephalexin [From Keflex] Allergy Swelling Verified 12/19/17 16:54 of Lip/Tongue/Throat ciprofloxacin [From Cipro] Allergy Anaphylaxis Verified 12/19/17 16:54 gabapentin [From Neurontin] Allergy Swelling Verified 12/19/17 16:54 of Lip/Tongue/Throat lisinopril Allergy Headache Verified 12/19/17 16:54 shellfish derived Allergy Anaphylaxis Verified 12/19/17 16:54 Sulfa (Sulfonamide Allergy Hives Verified 12/19/17 16:54 Antibiotics) sulfamethoxazole Allergy Hives Verified 12/19/17 16:54 [From Bactrim] trimethoprim [From Bactrim] Allergy Hives Verified 12/19/17 16:54 venom-honey bee Allergy Anaphylaxis Verified 12/19/17 16:54 [bee venom (honey bee)] metformin AdvReac Dizziness Verified 12/19/17 16:54 IVP DYE Allergy Swelling Uncoded 07/16/16 15:07 of Lip/Tongue/Throat Date of admission: 12/19/17 21:01 Primary care physician: Dixie Nielsen CNP Consults: 12/19/17 22:14 Consult to Real Estate Clerk [CONS] Routine Reason for SW Consult: [place], lives at home alone with limited home health services. Patient expressed concern about home health being shortened, states agency wants to cut her time in half. 12/20/17 00:23 Consult to Nurse Navigator [CONS] Routine Comment: Discharging clinician: Jesus Alberto Ibarra Anticipated date of discharge: 12/21/17 - Constitutional Vitals: Temp Pulse Resp BP Pulse Ox 98.5 F 101 16 131/67 99 12/21/17 11:22 12/21/17 11:22 12/21/17 11:22 12/21/17 11:22 12/21/17 11:22 General appearance: Present: cooperative, A&O X 3, pleasant, no acute distress, answers questions appropriately Exam: Gen: Afebrile, vital signs are stable, not in any form of distress laying flat HEENT: Moist oral mucosa, not jaundiced, not pale, not cyanotic Head: Atraumatic Chest: equal chest movement bilaterally Respiratory: CTAB, no wheezing at this time Heart: S1/S2 no murmurs, gallops or rubs Abdomen: Flat soft and non-tender no palpable organomegaly Extremities: no pedal edema. - Patient Status Disposition: Home Health Service Condition: Good Functional capacity at discharge: independent ambulation Overall status at discharge: patient is progressing back to baseline - Discharge Instructions Follow Up With: Diixe Nielsen CNP [Primary Care Provider] - 12/28/17 11:00 am (Please follow up as schedule...) - Diet and Activity Activity: resume usual activities as tolerated, wear oxygen at all times Diet: low fat, low cholesterol, low salt diet
--- NOTE | 2017-12-21 14:23 | Physician Discharge Referral ---
Home Health/Hosp Referral Info Attending Provider: Jesus Alberto Ibarra - Diagnosis (1) Acute kidney injury superimposed on chronic kidney disease Priority: Primary Status: Acute (2) COPD with acute exacerbation Priority: Primary Status: Acute (3) DVT prophylaxis Priority: Primary Status: Resolved (4) Fall Priority: Primary Status: Acute (5) Hypothyroidism Priority: Secondary Status: Chronic (6) QT prolongation Priority: Primary Status: Resolved (7) Weakness Priority: Primary Status: Resolved (8) Coronary artery disease Priority: Secondary Status: Chronic - Respiratory Orders Oxygen / L per min Smoking Cessation: Smoking cessation has been advised. For more information, call the [place] Tobacco Quit Line at 2-946-EHAU-NOW. - Diet/Nutrition Diet/Nutrition Orders: Cardiac - Activity Activity Orders: Up ad esteban - Services Needed Following services are medically necessary services: Nursing, Home Health Aide, Physical Therapy, Occupational Therapy - Transfer Medications Home Medications: Aspirin 81 mg PO DAILY 12/07/14 [History] Nitroglycerin 1 tab SL PRN PRN 12/07/14 [History] Oxygen 2.5 l .ROUTE AD 05/01/15 [History] Acetaminophen [Tylenol Arthritis] 650 mg PO DAILY PRN 12/21/17 [History] Albuterol Sulfate [Albuterol Inhaler] 2 puff IH BID PRN 12/21/17 [History] Cetirizine HCl 10 mg PO DAILY 12/21/17 [History] Cholecalciferol (D-3) [Vitamin D] 2,000 unit PO DAILY 12/21/17 [History] Citalopram Hydrobromide [Citalopram HBr] 20 mg PO DAILY 12/21/17 [History] Cyclobenzaprine HCl 5 mg PO HS PRN 12/21/17 [History] Fluticasone Propionate Nasal [Flonase] 100 mcg NS HS 12/21/17 [History] Levothyroxine [Synthroid] 100 mcg PO 0630 12/21/17 [History] Meclizine HCl [Verticalm] 25 mg PO DAILY PRN 12/21/17 [History] Montelukast [Singulair] 10 mg PO DAILY 12/21/17 [History] Oxybutynin [Ditropan] 5 mg PO DAILY 12/21/17 [History] Pregabalin [Lyrica] 75 mg PO BID 12/21/17 [History] Ranitidine HCl [Heartburn Relief] 150 mg PO BID 12/21/17 [History] Ticagrelor [Brilinta] 90 mg PO BID 12/21/17 [History] Tramadol HCl [Ultram] 50 mg PO BID PRN 12/21/17 [History] Allergies/Adverse Reactions: Allergy/AdvReac Type Severity Reaction Status Date / Time budesonide [From Symbicort] Allergy Swelling Verified 12/19/17 16:54 of Lip/Tongue/Throat carvedilol [From Coreg] Allergy Swelling Verified 12/19/17 16:54 of Lip/Tongue/Throat cephalexin [From Keflex] Allergy Swelling Verified 12/19/17 16:54 of Lip/Tongue/Throat ciprofloxacin [From Cipro] Allergy Anaphylaxis Verified 12/19/17 16:54 gabapentin [From Neurontin] Allergy Swelling Verified 12/19/17 16:54 of Lip/Tongue/Throat lisinopril Allergy Headache Verified 12/19/17 16:54 shellfish derived Allergy Anaphylaxis Verified 12/19/17 16:54 Sulfa (Sulfonamide Allergy Hives Verified 12/19/17 16:54 Antibiotics) sulfamethoxazole Allergy Hives Verified 12/19/17 16:54 [From Bactrim] trimethoprim [From Bactrim] Allergy Hives Verified 12/19/17 16:54 venom-honey bee Allergy Anaphylaxis Verified 12/19/17 16:54 [bee venom (honey bee)] metformin AdvReac Dizziness Verified 12/19/17 16:54 IVP DYE Allergy Swelling Uncoded 07/16/16 15:07 of Lip/Tongue/Throat Certification: Further, I certify that my clinical findings support that this patient is homebound (i.e. absences from home require considerable and taxing effort and are for medical reasons or hindu services or infrequently or short duration when for other reasons) because: Homebound Reason: Patient requires assistance of a person or device to safely leave home Attestation: My signature below is to certify that this patient is under my care and that I, or nurse practitioner, or a physician's dental assistant teacher working with me, has a [id number] encounter with this patient.
[2017-12-21] MEDS ORDERED: Famotidine 20 MG TABLET PO SCH (21:00)
--- NOTE | 2017-12-23 21:58 | Electrocardiograph Report ---
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
== END 2017-12-21 14:48 | disposition home health service (06) ==
LOC: EMEROOARM 16:43 → 2ANU 16:43 → SUATTDRO 21:01 → 2ANU 22:03
PROVIDERS: ADMIT Pediatrics; ATTEND Internal Medicine

== ENCOUNTER 2018-10-12 13:01 | Observation (INO) ==
[2018-10-12] MEDS ORDERED: Naloxone 0.4 MG/ML INJ IVP PRN (15:28)
[2018-10-12] MEDS ORDERED: Acetaminophen 325 MG TABLET PO PRN (16:21)
[2018-10-12] MEDS ORDERED: Loratadine 10 MG TABLET PO PRN (16:21)
[2018-10-12] MEDS ORDERED: Nitroglycerin 0.4 MG TAB.SUBL SL PRN (16:21)
[2018-10-12] MEDS ORDERED: *HR* Heparin 5,000 UNIT/ML VIAL IVP PRN ×2 (16:23)
[2018-10-12] MEDS ORDERED: *HR* Heparin 5,000 UNIT/ML VIAL IVP ONE (16:23)
[2018-10-12] MEDS ORDERED: cefTRIAXone 2,000 MG in Water for inj. (sterile) 20 ML IVP SCH (17:00)
[2018-10-12 17:07] LABS: Hematocrit 38.6 % (35.3-44.9); Hemoglobin 12.8 g/dL (11.5-15.4); Mean Corpuscular HGB Conc 33.2 g/dL (31.6-35.5); Mean Corpuscular Hemoglobin 30.3 pg (28.0-33.3); Mean Corpuscular Volume 91.3 fL (83.0-100.0); Platelet Count 230 K/mcL (140-400); Red Blood Count 4.23 M/mcL (3.82-4.97); Red Cell Distribution Width 13.2 % (11.5-14.5); White Blood Count 9.4 K/mcL (4.3-11.1)
[2018-10-12 17:27] LABS: BUN/Creatinine Ratio 24 (6-26); Blood Urea Nitrogen 25 mg/dL (8-23); Calcium 9.8 mg/dL (8.6-10.3); Carbon Dioxide 26 mEq/L (23-29); Chloride 103 mEq/L (98-107); Glucose 128 mg/dL (70-105); Osmolality,Calculated 294 (280-300); Phosphorous 3.3 mg/dL (2.7-4.5); Potassium 4.3 mEq/L (3.5-5.1); Sodium 139 mEq/L (136-145); eGFR For African Americans > 60 (> 60); eGFR For Non-African Americans 52 (> 60)
[2018-10-12 17:38] LABS: Troponin I 1.15 ng/mL (< 0.04)
[2018-10-12 17:39] LABS: Thyroid Stimulating Hormone 0.628 mcIU/mL (0.340-5.600)
[2018-10-12] MEDS: *HR* Ticagrelor 90 MG TABLET PO SCH (18:10)
[2018-10-12] MEDS: Heparin 25,000 UNIT/250 ML D5W 25,000 UNIT/250 ML IV.SOLN IVC SCH (20:39)
[2018-10-12] MEDS ORDERED: Perflutren Lipid Microsphere 1.3 ML in 0.9 % Sodium Chloride 8.7 ML IVP ONE (20:55)
[2018-10-12] MEDS: Pregabalin 75 MG CAPSULE PO SCH (21:31)
[2018-10-12] MEDS: Fluticasone Propionate Nasal 50 MCG/SPRAY BOTTLE NS SCH (21:34)
[2018-10-13] MEDS: *HR* Ticagrelor 90 MG TABLET PO SCH ×3 (00:43→21:43)
[2018-10-13 01:16] LABS: Hematocrit 40.1 % (35.3-44.9); Mean Corpuscular HGB Conc 32.4 g/dL (31.6-35.5); Mean Corpuscular Hemoglobin 30.4 pg (28.0-33.3); Mean Corpuscular Volume 93.9 fL (83.0-100.0); Mean Platelet Volume 10.8 fL (9.4-12.4); Platelet Count 230 K/mcL (140-400); Red Blood Count 4.27 M/mcL (3.82-4.97); Red Cell Distribution Width 13.1 % (11.5-14.5); White Blood Count 6.9 K/mcL (4.3-11.1)
[2018-10-13 01:25] LABS: Prothrombin Time 10.9 Seconds (9.4-12.1)
[2018-10-13 01:38] LABS: Albumin 3.9 g/dL (3.5-5.7); Albumin/Globulin Ratio 1.1 (1.1-2.2); Bilirubin,Total 0.3 mg/dL (0.3-1.0); Calcium 9.6 mg/dL (8.6-10.3); Chol/HDL Ratio 4.9 (0-4.9); Globulin 3.5 g/dL (2.4-3.5); Potassium 4.2 mEq/L (3.5-5.1); Total Protein 7.4 g/dL (6.4-8.9)
[2018-10-13 01:55] LABS: Estimated Average Glucose 157 mg/dl
[2018-10-13] MEDS ORDERED: Cholecalciferol (D-3) 1,000 UNIT (25MCG) TABLET PO SCH (09:00)
[2018-10-13] MEDS: Cholecalciferol (D-3) 1,000 UNIT (25MCG) TABLET PO SCH (09:31)
[2018-10-13] MEDS: Famotidine 20 MG TABLET PO SCH (09:32)
[2018-10-13] MEDS: Aspirin 81 MG TAB.CHEW PO SCH (09:32)
[2018-10-13] MEDS: Pregabalin 75 MG CAPSULE PO SCH ×2 (09:32→21:42)
[2018-10-13] MEDS: 0.9 % Sodium Chloride 1,000 ML IVC SCH ×2 (11:10→21:47)
[2018-10-13] MEDS: cefTRIAXone 1,000 MG in Water for inj. (sterile) 10 ML IVP SCH (14:13)
[2018-10-13] MEDS: predniSONE 20 MG TABLET PO SCH (21:43)
[2018-10-13] MEDS: Heparin 25,000 UNIT/250 ML D5W 25,000 UNIT/250 ML IV.SOLN IVC SCH (21:49)
[2018-10-13] MEDS: Fluticasone Propionate Nasal 50 MCG/SPRAY BOTTLE NS SCH (21:52)
[2018-10-14 03:06] LABS: Calcium 9.1 mg/dL (8.6-10.3); Potassium 4.9 mEq/L (3.5-5.1)
[2018-10-14 07:52] VITALS: BP 165/82
[2018-10-14] MEDS: Cholecalciferol (D-3) 1,000 UNIT (25MCG) TABLET PO SCH (09:56)
[2018-10-14] MEDS: Famotidine 20 MG TABLET PO SCH (09:56)
[2018-10-14] MEDS: Aspirin 81 MG TAB.CHEW PO SCH (09:56)
[2018-10-14] MEDS: predniSONE 20 MG TABLET PO SCH (09:57)
[2018-10-14] MEDS: 0.9 % Sodium Chloride 1,000 ML IVC SCH (09:57)
[2018-10-14] MEDS: cefTRIAXone 1,000 MG in Water for inj. (sterile) 10 ML IVP SCH (09:58)
[2018-10-14] MEDS: Pregabalin 75 MG CAPSULE PO SCH (09:58)
[2018-10-14] MEDS: *HR* Ticagrelor 90 MG TABLET PO SCH (09:58)
== END 2018-10-14 13:24 | disposition left against medical advice (07) | DRG 190 ==
LOC: 2NENU → INTOOBSV 15:15 → SUATTDRO 15:15 → OBSVTOIN 15:15
PROVIDERS: ADMIT Internal Medicine; ATTEND Internal Medicine

== ENCOUNTER 2018-12-30 14:16 | Inpatient (IN) ==
[2018-12-30 15:06] LABS: Prothrombin Time 11.3 Seconds (9.4-12.1)
[2018-12-30 15:13] LABS: Basophils # 0.1 K/mcL (0.0-0.2); Eosinophils # 0.2 K/mcL (0.0-0.6); Eosinophils % 3.3 %; Hematocrit 38.6 % (35.3-44.9); Hemoglobin 12.8 g/dL (11.5-15.4); Immature Granulocytes % 0.3 % (0-4); Lymphocytes # 2.1 K/mcL (0.6-4.6); Lymphocytes % 31.5 %; Mean Corpuscular HGB Conc 33.2 g/dL (31.6-35.5); Mean Corpuscular Hemoglobin 30.5 pg (28.0-33.3); Mean Corpuscular Volume 92.1 fL (83.0-100.0); Monocytes # 0.7 K/mcL (0.0-1.3); Monocytes % 10.7 %; Neutrophils # 3.6 K/mcL (1.6-8.9); Platelet Count 251 K/mcL (140-400); Red Blood Count 4.19 M/mcL (3.82-4.97); Red Cell Distribution Width 12.9 % (11.5-14.5); Segmented Neutrophils % 53.2 %; White Blood Count 6.7 K/mcL (4.3-11.1)
[2018-12-30 15:25] LABS: BUN/Creatinine Ratio 19 (6-26); Blood Urea Nitrogen 25 mg/dL (8-23); Calcium 9.6 mg/dL (8.6-10.3); Carbon Dioxide 26 mEq/L (23-29); Chloride 103 mEq/L (98-107); Glucose 104 mg/dL (70-105); Osmolality,Calculated 289 (280-300); Potassium 4.7 mEq/L (3.5-5.1); Sodium 137 mEq/L (136-145); Troponin I < 0.03 ng/mL (< 0.04); eGFR For African Americans 48 (> 60); eGFR For Non-African Americans 40 (> 60)
[2018-12-30] MEDS ORDERED: *HR* Heparin 5,000 UNIT/ML VIAL IVP PRN ×4 (15:59→22:36)
[2018-12-30] MEDS ORDERED: *HR* Heparin 5,000 UNIT/ML VIAL IVP ONE (15:59)
[2018-12-30] MEDS ORDERED: Heparin 25,000 UNIT/250 ML D5W 25,000 UNIT/250 ML IV.SOLN IVC SCH ×2 (16:00→22:45)
[2018-12-30] MEDS ORDERED: Loratadine 10 MG TABLET PO PRN (16:01)
[2018-12-30] MEDS ORDERED: Nitroglycerin 0.4 MG TAB.SUBL SL PRN (16:01)
[2018-12-30] MEDS ORDERED: Fluticasone Propionate Nasal 50 MCG/SPRAY BOTTLE NS PRN (16:01)
[2018-12-30] MEDS ORDERED: MOM Conc 10 ML UD.LIQ PO PRN (16:04)
[2018-12-30] MEDS ORDERED: traMADol 50 MG TABLET PO PRN (16:04)
[2018-12-30] MEDS ORDERED: Mag Hydrox/Al Hydrox/Simeth 30 ML UDC PO PRN (16:04)
[2018-12-30] MEDS ORDERED: *HR* Promethazine 25 MG/ML VIAL IVP PRN (16:04)
[2018-12-30] MEDS ORDERED: Ondansetron 4 MG/2 ML VIAL IVP PRN (16:04)
[2018-12-30] MEDS ORDERED: Naloxone 0.4 MG/ML INJ IVP PRN (16:04)
[2018-12-30 16:24] LABS: Hematocrit 38.5 % (35.3-44.9); Hemoglobin 12.5 g/dL (11.5-15.4); Mean Corpuscular HGB Conc 32.5 g/dL (31.6-35.5); Mean Corpuscular Hemoglobin 30.7 pg (28.0-33.3); Mean Corpuscular Volume 94.6 fL (83.0-100.0); Mean Platelet Volume 10.7 fL (9.4-12.4); Platelet Count 222 K/mcL (140-400); Red Blood Count 4.07 M/mcL (3.82-4.97); Red Cell Distribution Width 13.1 % (11.5-14.5); White Blood Count 6.7 K/mcL (4.3-11.1)
[2018-12-30] MEDS ORDERED: Dextrose Gel 15 GM/37.5 ML TUBE PO PRN ×2 (16:31)
[2018-12-30] MEDS ORDERED: *HR* Dextrose 50 % in Water (Syg) 50 ML SYRINGE IVP PRN (16:31)
[2018-12-30] MEDS ORDERED: D5% in Water 1,000 ML IVC PRN (16:31)
[2018-12-30 16:33] LABS: INR 0.9; Prothrombin Time 10.6 Seconds (9.4-12.1)
[2018-12-30] MEDS: Insulin LISPRO 300 UNITS/3 ML VIAL SQ SCH (20:16)
[2018-12-30] MEDS ORDERED: Acetaminophen 325 MG TABLET PO SCH (21:00)
[2018-12-30] MEDS: Famotidine 20 MG TABLET PO SCH (21:04)
[2018-12-30] MEDS: Pregabalin 75 MG CAPSULE PO SCH (21:05)
[2018-12-30] MEDS: Aspirin Enteric Coated 81 MG Tablet PO SCH (21:05)
[2018-12-30] MEDS: *HR* Ticagrelor 90 MG TABLET PO SCH (22:48)
[2018-12-31 04:09] LABS: Albumin 3.7 g/dL (3.5-5.7); Albumin/Globulin Ratio 1.2 (1.1-2.2); Bilirubin,Total 0.3 mg/dL (0.3-1.0); Calcium 9.1 mg/dL (8.6-10.3); Chol/HDL Ratio 3.6 (0-4.9); Globulin 3.1 g/dL (2.4-3.5); Magnesium 1.8 mg/dL (1.6-2.6); Phosphorous 4.3 mg/dL (2.7-4.5); Potassium 4.4 mEq/L (3.5-5.1); Total Protein 6.8 g/dL (6.4-8.9)
[2018-12-31] MEDS: Insulin LISPRO 300 UNITS/3 ML VIAL SQ SCH ×4 (07:48→21:34)
[2018-12-31] MEDS: Famotidine 20 MG TABLET PO SCH ×2 (08:35→21:43)
[2018-12-31] MEDS: Cholecalciferol (D-3) 1,000 UNIT (25MCG) TABLET PO SCH (08:35)
[2018-12-31] MEDS: Aspirin Enteric Coated 81 MG Tablet PO SCH ×2 (08:35→21:43)
[2018-12-31] MEDS: *HR* Ticagrelor 90 MG TABLET PO SCH ×2 (08:35→21:43)
[2018-12-31] MEDS: Pregabalin 75 MG CAPSULE PO SCH ×2 (08:35→21:43)
[2018-12-31] MEDS: *HR* Heparin 5,000 UNIT/ML VIAL SQ SCH (17:39)
[2018-12-31] MEDS ORDERED: *HR* Heparin 5,000 UNIT/ML VIAL SQ SCH (18:00)
[2019-01-01] MEDS: *HR* Heparin 5,000 UNIT/ML VIAL SQ SCH ×2 (05:26→18:31)
[2019-01-01 07:20] LABS: Calcium 9.3 mg/dL (8.6-10.3); Potassium 4.4 mEq/L (3.5-5.1)
[2019-01-01] MEDS: Insulin LISPRO 300 UNITS/3 ML VIAL SQ SCH ×4 (08:14→21:37)
[2019-01-01] MEDS: Pregabalin 75 MG CAPSULE PO SCH ×2 (09:35→21:37)
[2019-01-01] MEDS: *HR* Ticagrelor 90 MG TABLET PO SCH ×2 (09:35→21:37)
[2019-01-01] MEDS: Famotidine 20 MG TABLET PO SCH ×2 (09:35→21:37)
[2019-01-01] MEDS: Aspirin Enteric Coated 81 MG Tablet PO SCH ×2 (09:35→21:37)
[2019-01-01] MEDS: Cholecalciferol (D-3) 1,000 UNIT (25MCG) TABLET PO SCH (09:35)
[2019-01-02] MEDS: Acetaminophen 325 MG TABLET PO PRN ×3 (03:24→22:35)
[2019-01-02] MEDS: *HR* Heparin 5,000 UNIT/ML VIAL SQ SCH ×2 (05:57→18:01)
[2019-01-02] MEDS: Famotidine 20 MG TABLET PO SCH (09:15)
[2019-01-02] MEDS: Cholecalciferol (D-3) 1,000 UNIT (25MCG) TABLET PO SCH (09:15)
[2019-01-02] MEDS: Insulin LISPRO 300 UNITS/3 ML VIAL SQ SCH ×4 (09:15→20:32)
[2019-01-02] MEDS: *HR* Ticagrelor 90 MG TABLET PO SCH ×2 (09:15→20:31)
[2019-01-02] MEDS: Aspirin Enteric Coated 81 MG Tablet PO SCH ×2 (09:16→20:31)
[2019-01-02] MEDS: Pregabalin 75 MG CAPSULE PO SCH ×2 (09:16→20:31)
[2019-01-02 12:01] LABS: Potassium 4.2 mEq/L (3.5-5.1)
[2019-01-02] MEDS ORDERED: predniSONE 20 MG TABLET PO ONE (21:00)
[2019-01-03] MEDS ORDERED: predniSONE 20 MG TABLET PO ONE ×2 (02:00→09:00)
[2019-01-03] MEDS: *HR* Heparin 5,000 UNIT/ML VIAL SQ SCH ×2 (05:49→17:33)
[2019-01-03 05:51] LABS: Hematocrit 39.1 % (35.3-44.9); Hemoglobin 12.7 g/dL (11.5-15.4); Mean Corpuscular HGB Conc 32.5 g/dL (31.6-35.5); Mean Corpuscular Hemoglobin 30.4 pg (28.0-33.3); Mean Corpuscular Volume 93.5 fL (83.0-100.0); Mean Platelet Volume 10.6 fL (9.4-12.4); Platelet Count 230 K/mcL (140-400); Red Blood Count 4.18 M/mcL (3.82-4.97); Red Cell Distribution Width 12.5 % (11.5-14.5)
[2019-01-03 06:14] LABS: Calcium 9.5 mg/dL (8.6-10.3); Potassium 4.9 mEq/L (3.5-5.1)
[2019-01-03] MEDS: Insulin LISPRO 300 UNITS/3 ML VIAL SQ SCH ×4 (10:29→21:22)
[2019-01-03] MEDS: Pregabalin 75 MG CAPSULE PO SCH ×2 (11:09→21:32)
[2019-01-03] MEDS: Famotidine 20 MG TABLET PO SCH (11:09)
[2019-01-03] MEDS: Cholecalciferol (D-3) 1,000 UNIT (25MCG) TABLET PO SCH (11:09)
[2019-01-03] MEDS: *HR* Ticagrelor 90 MG TABLET PO SCH ×2 (11:09→21:32)
[2019-01-03] MEDS: Aspirin Enteric Coated 81 MG Tablet PO SCH ×2 (11:09→21:32)
[2019-01-03] MEDS ORDERED: 0.9 % Sodium Chloride 2,000 ML ONE (15:09)
[2019-01-03] MEDS ORDERED: ISOVUE-370 200 ML INFUS..BTL ONE (15:10)
[2019-01-03] MEDS ORDERED: Nitroglycerin 1,000 MCG/10 ML VIAL IV ONE (15:10)
[2019-01-03] MEDS ORDERED: *HR* Heparin 10,000 UNIT/10 ML VIAL ONE (15:10)
[2019-01-03] MEDS ORDERED: Heparin 1,000 UNITS/500 mL 500 ML ONE (15:10)
[2019-01-03] MEDS ORDERED: Verapamil 5 MG/2 ML VIAL ONE (15:26)
[2019-01-03] MEDS ORDERED: *HR* FentaNYL (PF) 100 MCG/2 ML VIAL ONE (15:26)
[2019-01-03] MEDS ORDERED: *HR* Midazolam HCl 2 MG/2 ML VIAL ONE (15:26)
[2019-01-03] MEDS ORDERED: *HR* Ticagrelor 90 MG TABLET ONE (16:23)
[2019-01-03] MEDS: Acetaminophen 325 MG TABLET PO PRN (16:56)
[2019-01-03] MEDS ORDERED: *HR* Atropine Sulfate 1 MG/10 ML SYRINGE ONE (19:49)
[2019-01-04 06:23] LABS: Calcium 9.2 mg/dL (8.6-10.3); Potassium 3.8 mEq/L (3.5-5.1)
[2019-01-04] MEDS: *HR* Heparin 5,000 UNIT/ML VIAL SQ SCH ×2 (06:52→17:50)
[2019-01-04] MEDS: Insulin LISPRO 300 UNITS/3 ML VIAL SQ SCH ×4 (07:22→23:32)
[2019-01-04] MEDS: *HR* Ticagrelor 90 MG TABLET PO SCH ×2 (08:46→22:14)
[2019-01-04] MEDS: Cholecalciferol (D-3) 1,000 UNIT (25MCG) TABLET PO SCH (08:46)
[2019-01-04] MEDS: Famotidine 20 MG TABLET PO SCH (08:46)
[2019-01-04] MEDS: Pregabalin 75 MG CAPSULE PO SCH ×2 (08:46→22:14)
[2019-01-04] MEDS: Aspirin Enteric Coated 81 MG Tablet PO SCH ×2 (08:46→22:14)
[2019-01-04] MEDS ORDERED: Adenosine 90 MG/30 ML MLS IV ONE (16:01)
[2019-01-05 01:14] LABS: Hematocrit 35.9 % (35.3-44.9); Hemoglobin 11.5 g/dL (11.5-15.4); Mean Corpuscular Hemoglobin 30.2 pg (28.0-33.3); Mean Corpuscular Volume 94.2 fL (83.0-100.0); Platelet Count 223 K/mcL (140-400); Red Blood Count 3.81 M/mcL (3.82-4.97); Red Cell Distribution Width 13.2 % (11.5-14.5); White Blood Count 8.9 K/mcL (4.3-11.1)
[2019-01-05 01:36] LABS: Potassium 4.1 mEq/L (3.5-5.1)
[2019-01-05] MEDS: *HR* Heparin 5,000 UNIT/ML VIAL SQ SCH ×2 (06:52→17:07)
[2019-01-05] MEDS ORDERED: Ringers Solution, Lactated 1,000 ML IVC ONE (07:45)
[2019-01-05] MEDS: Insulin LISPRO 300 UNITS/3 ML VIAL SQ SCH ×4 (08:00→22:11)
[2019-01-05] MEDS: Aspirin Enteric Coated 81 MG Tablet PO SCH ×2 (08:02→22:08)
[2019-01-05] MEDS: *HR* Ticagrelor 90 MG TABLET PO SCH ×2 (08:02→22:08)
[2019-01-05] MEDS: Pregabalin 75 MG CAPSULE PO SCH ×2 (08:02→22:08)
[2019-01-05] MEDS: Cholecalciferol (D-3) 1,000 UNIT (25MCG) TABLET PO SCH (08:02)
[2019-01-05] MEDS: Famotidine 20 MG TABLET PO SCH (08:02)
[2019-01-05 15:49] LABS: Bilirubin,Urine Negative (Negative); Blood,Urine Negative (Negative); Clarity,Urine Clear (Clear); Color,Urine Yellow (Yellow); Glucose,Urine (UA) Normal (Normal); Ketones,Urine Negative (Negative); Leukocyte Esterase,Urine Negative (Negative); Nitrite,Urine Negative (Negative); Protein,Urine Negative (Neg-Trace); Specific Gravity,Urine 1.007 (1.010-1.025); Urobilinogen,Urine Normal (Normal)
[2019-01-06] MEDS: *HR* Heparin 5,000 UNIT/ML VIAL SQ SCH (05:38)
[2019-01-06 09:00] LABS: Hematocrit 37.3 % (35.3-44.9); Hemoglobin 12.2 g/dL (11.5-15.4); Mean Corpuscular HGB Conc 32.7 g/dL (31.6-35.5); Mean Corpuscular Hemoglobin 30.6 pg (28.0-33.3); Mean Corpuscular Volume 93.5 fL (83.0-100.0); Mean Platelet Volume 10.9 fL (9.4-12.4); Platelet Count 225 K/mcL (140-400); Red Blood Count 3.99 M/mcL (3.82-4.97); Red Cell Distribution Width 12.9 % (11.5-14.5); White Blood Count 7.3 K/mcL (4.3-11.1)
[2019-01-06] MEDS: Pregabalin 75 MG CAPSULE PO SCH (09:07)
[2019-01-06] MEDS: Insulin LISPRO 300 UNITS/3 ML VIAL SQ SCH (09:08)
[2019-01-06] MEDS: *HR* Ticagrelor 90 MG TABLET PO SCH (09:08)
[2019-01-06] MEDS: Cholecalciferol (D-3) 1,000 UNIT (25MCG) TABLET PO SCH (09:08)
[2019-01-06] MEDS: Aspirin Enteric Coated 81 MG Tablet PO SCH (09:08)
[2019-01-06] MEDS: Famotidine 20 MG TABLET PO SCH (09:08)
[2019-01-06 09:22] LABS: BUN/Creatinine Ratio 25 (6-26); Blood Urea Nitrogen 27 mg/dL (8-23); Calcium 9.3 mg/dL (8.6-10.3); Carbon Dioxide 23 mEq/L (23-29); Chloride 102 mEq/L (98-107); Glucose 158 mg/dL (70-105); Osmolality,Calculated 290 (280-300); Potassium 4.2 mEq/L (3.5-5.1); Sodium 136 mEq/L (136-145); eGFR For African Americans > 60 (> 60); eGFR For Non-African Americans 50 (> 60)
[2019-01-06 10:54] VITALS: BP 111/72
== END 2019-01-06 16:02 | disposition home health service (06) | DRG 175 ==
LOC: 3BNU 14:16 → EMEROOARM 14:16 → SUATTDRO 16:43 → 3BNU 17:26 → 2NNU 01-03 17:30 → SUATTDRO 01-04 11:11 → 3ANU 01-05 14:24
PROVIDERS: ADMIT Internal Medicine; ATTEND Internal Medicine

== ENCOUNTER 2019-01-30 17:34 | Inpatient (IN) ==
[2019-01-30] MEDS ORDERED: Morphine Sulfate 2 MG/ML SYRINGE IVP PRN (20:47)
[2019-01-30] MEDS ORDERED: Naloxone 0.4 MG/ML INJ IVP PRN (20:47)
[2019-01-30] MEDS ORDERED: Nitroglycerin 0.4 MG TAB.SUBL SL PRN (20:47)
[2019-01-30] MEDS ORDERED: D5% in Water 1,000 ML IVC PRN (20:47)
[2019-01-30] MEDS ORDERED: Dextrose Gel 15 GM/37.5 ML TUBE PO PRN ×2 (20:47)
[2019-01-30] MEDS ORDERED: *HR* Dextrose 50 % in Water (Syg) 50 ML SYRINGE IVP PRN (20:47)
[2019-01-30] MEDS ORDERED: 0.9 % Sodium Chloride 1,000 ML IVC SCH (21:00)
[2019-01-30] MEDS: *HR* Ticagrelor 90 MG TABLET PO SCH (23:40)
[2019-01-31 01:42] LABS: Basophils % 0.4 %; Eosinophils # 0.1 K/mcL (0.0-0.6); Eosinophils % 0.5 %; Hematocrit 33.3 % (35.3-44.9); Hemoglobin 10.6 g/dL (11.5-15.4); Immature Granulocytes % 0.5 % (0-4); Lymphocytes % 20.3 %; Mean Corpuscular HGB Conc 31.8 g/dL (31.6-35.5); Mean Corpuscular Hemoglobin 30.4 pg (28.0-33.3); Mean Corpuscular Volume 95.4 fL (83.0-100.0); Mean Platelet Volume 11.6 fL (9.4-12.4); Monocytes # 1.2 K/mcL (0.0-1.3); Monocytes % 12.2 %; Neutrophils # 6.4 K/mcL (1.6-8.9); Platelet Count 177 K/mcL (140-400); Red Blood Count 3.49 M/mcL (3.82-4.97); Red Cell Distribution Width 13.7 % (11.5-14.5); Segmented Neutrophils % 66.1 %; White Blood Count 9.7 K/mcL (4.3-11.1)
[2019-01-31 01:50] LABS: INR 1.1; Prothrombin Time 12.5 Seconds (9.4-12.1)
[2019-01-31] MEDS ORDERED: *HR* Heparin 5,000 UNIT/ML VIAL IVP PRN ×2 (01:54)
[2019-01-31] MEDS ORDERED: *HR* Heparin 5,000 UNIT/ML VIAL IVP ONE (01:54)
[2019-01-31] MEDS ORDERED: Heparin 25,000 UNIT/250 ML D5W 25,000 UNIT/250 ML IV.SOLN IVC SCH (02:00)
[2019-01-31 02:05] LABS: Albumin 3.2 g/dL (3.5-5.7); Bilirubin,Total 0.5 mg/dL (0.3-1.0); Chol/HDL Ratio 2.6 (0-4.9); Globulin 3.1 g/dL (2.4-3.5); Magnesium 1.8 mg/dL (1.6-2.6); Phosphorous 3.9 mg/dL (2.7-4.5); Total Protein 6.3 g/dL (6.4-8.9)
[2019-01-31 02:14] LABS: Thyroid Stimulating Hormone 1.212 mcIU/mL (0.340-5.600)
[2019-01-31 04:23] LABS: Bilirubin,Urine Negative (Negative); Blood,Urine Small (Negative); Clarity,Urine Cloudy (Clear); Color,Urine Yellow (Yellow); Glucose,Urine (UA) Normal (Normal); Ketones,Urine Negative (Negative); Leukocyte Esterase,Urine Moderate (Negative); Nitrite,Urine Negative (Negative); PH,Urine 5.5 pH Units (5.0-8.0); Protein,Urine Trace mg/dL (Neg-Trace); Specific Gravity,Urine 1.013 (1.010-1.025); Urobilinogen,Urine Normal (Normal)
[2019-01-31 04:25] LABS: Bacteria,Urine None Seen per hpf (None-Few); Hyaline Casts,Urine None Seen per lpf (None-Few); RBC,Urine 0-3 per hpf (0-3); Squamous Epithelial Cell,Urine Many per lpf (None-Few); WBC,Urine 30-50 per hpf (0-3)
[2019-01-31 04:38] LABS: Reactive Lymphocytes Present (Not Present)
[2019-01-31 04:39] LABS: Platelet Estimate Normal (Normal)
[2019-01-31] MEDS: *HR* Ticagrelor 90 MG TABLET PO SCH ×2 (07:52→21:00)
[2019-01-31] MEDS: Insulin LISPRO 300 UNITS/3 ML VIAL SQ SCH ×3 (07:52→17:14)
[2019-01-31] MEDS: Aspirin 81 MG TAB.CHEW PO SCH (07:52)
[2019-01-31 09:45] LABS: INR 1.1
[2019-01-31] MEDS ORDERED: methylPREDNISolone 125 MG/2 ML VIAL IVP ONE (10:58)
[2019-01-31] MEDS: 0.9 % Sodium Chloride 1,000 ML IVC SCH (13:36)
[2019-01-31] MEDS ORDERED: 0.9 % Sodium Chloride 1,000 ML ONE ×2 (14:04→14:35)
[2019-01-31] MEDS ORDERED: *HR* Heparin 10,000 UNIT/10 ML VIAL ONE (14:04)
[2019-01-31] MEDS ORDERED: Heparin 1,000 UNITS/500 mL 500 ML ONE (14:04)
[2019-01-31] MEDS ORDERED: Nitroglycerin 1,000 MCG/10 ML VIAL IV ONE (14:04)
[2019-01-31] MEDS ORDERED: ISOVUE-370 200 ML INFUS..BTL ONE (14:04)
[2019-01-31] MEDS ORDERED: *HR* Midazolam HCl 2 MG/2 ML VIAL ONE (14:35)
[2019-01-31] MEDS ORDERED: *HR* FentaNYL (PF) 100 MCG/2 ML VIAL ONE (14:35)
[2019-01-31] MEDS ORDERED: Ipratropium/Albuterol Neb 3 ML IH PRN (14:37)
[2019-01-31 19:24] LABS: Bilirubin,Urine Negative (Negative); Blood,Urine Negative (Negative); Clarity,Urine Cloudy (Clear); Color,Urine Yellow (Yellow); Glucose,Urine (UA) Normal (Normal); Ketones,Urine Trace mg/dL (Negative); Leukocyte Esterase,Urine Small (Negative); Nitrite,Urine Positive (Negative); Protein,Urine 30 mg/dL (Neg-Trace); Specific Gravity,Urine 1.021 (1.010-1.025); Urobilinogen,Urine Normal (Normal)
[2019-01-31 19:28] LABS: Bacteria,Urine Few per hpf (None-Few); Hyaline Casts,Urine None Seen per lpf (None-Few); Squamous Epithelial Cell,Urine Many per lpf (None-Few)
[2019-01-31 19:32] LABS: Sodium, Urine 56.3 mEq/L
[2019-01-31] MEDS ORDERED: Nitroglycerin 0.4 MG TAB.SUBL SL PRN (19:33)
[2019-01-31] MEDS ORDERED: Loratadine 10 MG TABLET PO PRN (19:33)
[2019-01-31] MEDS: Pregabalin 75 MG CAPSULE PO SCH (21:00)
[2019-01-31] MEDS ORDERED: Insulin LISPRO 300 UNITS/3 ML VIAL SQ SCH (21:00)
[2019-01-31] MEDS: *HR* Heparin 5,000 UNIT/ML VIAL SQ SCH (21:00)
[2019-02-01] MEDS: 0.9 % Sodium Chloride 1,000 ML IVC SCH (02:49)
[2019-02-01] MEDS: *HR* Heparin 5,000 UNIT/ML VIAL SQ SCH ×3 (05:06→22:45)
[2019-02-01 06:14] LABS: Basophils % 0.1 %; Hematocrit 32.6 % (35.3-44.9); Hemoglobin 10.5 g/dL (11.5-15.4); Immature Granulocytes % 0.7 % (0-4); Lymphocytes # 0.8 K/mcL (0.6-4.6); Lymphocytes % 7.9 %; Mean Corpuscular HGB Conc 32.2 g/dL (31.6-35.5); Mean Corpuscular Hemoglobin 30.6 pg (28.0-33.3); Mean Platelet Volume 11.3 fL (9.4-12.4); Monocytes # 0.4 K/mcL (0.0-1.3); Monocytes % 3.4 %; Neutrophils # 9.2 K/mcL (1.6-8.9); Platelet Count 202 K/mcL (140-400); Red Blood Count 3.43 M/mcL (3.82-4.97); Red Cell Distribution Width 13.6 % (11.5-14.5); Segmented Neutrophils % 87.9 %; White Blood Count 10.4 K/mcL (4.3-11.1)
[2019-02-01 06:30] LABS: Calcium 8.7 mg/dL (8.6-10.3); Magnesium 1.9 mg/dL (1.6-2.6); Potassium 4.6 mEq/L (3.5-5.1)
[2019-02-01] MEDS ORDERED: Famotidine 20 MG TABLET PO SCH (07:30)
[2019-02-01] MEDS ORDERED: Meropenem 1,000 MG in Water for inj. (sterile) 20 ML IVP ONE (07:41)
[2019-02-01] MEDS ORDERED: Dextrose Gel 15 GM/37.5 ML TUBE PO PRN ×2 (08:02)
[2019-02-01] MEDS ORDERED: D5% in Water 1,000 ML IVC PRN (08:02)
[2019-02-01] MEDS ORDERED: *HR* Dextrose 50 % in Water (Syg) 50 ML SYRINGE IVP PRN (08:02)
[2019-02-01] MEDS: Pregabalin 75 MG CAPSULE PO SCH ×2 (08:41→20:02)
[2019-02-01] MEDS: *HR* Ticagrelor 90 MG TABLET PO SCH ×2 (08:41→20:02)
[2019-02-01] MEDS: Aspirin 81 MG TAB.CHEW PO SCH (08:41)
[2019-02-01] MEDS: Multivit/Ca/Min/Fe/FA 1 TAB TABLET PO SCH (08:41)
[2019-02-01] MEDS ORDERED: levoFLOXacin 500 MG/100 ML 500 MG/100 ML BAG IVPB SCH (09:00)
[2019-02-01] MEDS: Ringers Solution, Lactated 1,000 ML IVC SCH (12:41)
[2019-02-01] MEDS: Insulin LISPRO 300 UNITS/3 ML VIAL SQ SCH ×2 (12:41→19:59)
[2019-02-01] MEDS: Famotidine 20 MG TABLET PO SCH (15:50)
[2019-02-01] MEDS ORDERED: Haloperidol Lactate 5 MG/ML VIAL ONE (18:09)
[2019-02-01] MEDS: Haloperidol Lactate 5 MG/ML VIAL IVP PRN (18:10)
[2019-02-01] MEDS ORDERED: Meropenem 500 MG in 0.9 % Sodium Chloride Mini Bag 100 ML IVPB SCH (20:00)
[2019-02-01] MEDS ORDERED: Ertapenem 1,000 MG in 0.9 % Sodium Chloride Mini Bag 100 ML IVPB SCH (20:00)
[2019-02-01] MEDS: Insulin DETEMIR 100 UNIT/ML X5UNITS SQ SCH (20:02)
[2019-02-02] MEDS: Ringers Solution, Lactated 1,000 ML IVC SCH (01:51)
[2019-02-02] MEDS: Haloperidol Lactate 5 MG/ML VIAL IVP PRN (03:51)
[2019-02-02] MEDS: *HR* Heparin 5,000 UNIT/ML VIAL SQ SCH ×3 (06:06→19:38)
[2019-02-02 06:11] LABS: Basophils % 0.2 %; Eosinophils % 0.1 %; Hemoglobin 10.2 g/dL (11.5-15.4); Immature Granulocytes % 0.5 % (0-4); Lymphocytes # 1.9 K/mcL (0.6-4.6); Mean Corpuscular HGB Conc 30.9 g/dL (31.6-35.5); Mean Corpuscular Hemoglobin 30.4 pg (28.0-33.3); Mean Corpuscular Volume 98.2 fL (83.0-100.0); Mean Platelet Volume 10.7 fL (9.4-12.4); Monocytes % 8.1 %; Neutrophils # 9.7 K/mcL (1.6-8.9); Platelet Count 199 K/mcL (140-400); Red Blood Count 3.36 M/mcL (3.82-4.97); Red Cell Distribution Width 13.7 % (11.5-14.5); Segmented Neutrophils % 76.1 %; White Blood Count 12.8 K/mcL (4.3-11.1)
[2019-02-02 06:31] LABS: Calcium 8.9 mg/dL (8.6-10.3); Magnesium 1.9 mg/dL (1.6-2.6); Potassium 4.9 mEq/L (3.5-5.1)
[2019-02-02] MEDS: Famotidine 20 MG TABLET PO SCH ×2 (08:36→17:28)
[2019-02-02] MEDS: *HR* Ticagrelor 90 MG TABLET PO SCH ×2 (08:37→19:41)
[2019-02-02] MEDS: Aspirin 81 MG TAB.CHEW PO SCH (08:37)
[2019-02-02] MEDS: Multivit/Ca/Min/Fe/FA 1 TAB TABLET PO SCH (08:37)
[2019-02-02] MEDS: Pregabalin 75 MG CAPSULE PO SCH ×2 (08:37→19:39)
[2019-02-02] MEDS: Insulin LISPRO 300 UNITS/3 ML VIAL SQ SCH ×3 (08:45→17:28)
[2019-02-02] MEDS: cefTRIAXone 2,000 MG in 0.9 % Sodium Chloride Mini Bag 100 ML IVPB SCH (13:10)
[2019-02-02] MEDS ORDERED: Furosemide 40 MG/4 ML VIAL IVP ONE (14:22)
[2019-02-02] MEDS: Insulin DETEMIR 100 UNIT/ML X5UNITS SQ SCH (19:40)
[2019-02-02] MEDS: Lactobacillus 1 EACH CAP.SPRINK PO SCH (19:41)
[2019-02-03 05:54] LABS: Basophils # 0.1 K/mcL (0.0-0.2); Basophils % 0.8 %; Eosinophils # 0.1 K/mcL (0.0-0.6); Eosinophils % 1.4 %; Hematocrit 33.3 % (35.3-44.9); Hemoglobin 10.2 g/dL (11.5-15.4); Immature Granulocytes % 1.4 % (0-4); Lymphocytes % 23.5 %; Mean Corpuscular HGB Conc 30.6 g/dL (31.6-35.5); Mean Corpuscular Hemoglobin 29.7 pg (28.0-33.3); Mean Corpuscular Volume 96.8 fL (83.0-100.0); Mean Platelet Volume 10.8 fL (9.4-12.4); Monocytes # 0.8 K/mcL (0.0-1.3); Monocytes % 9.1 %; Neutrophils # 5.4 K/mcL (1.6-8.9); Platelet Count 208 K/mcL (140-400); Red Blood Count 3.44 M/mcL (3.82-4.97); Red Cell Distribution Width 13.6 % (11.5-14.5); Segmented Neutrophils % 63.8 %; White Blood Count 8.4 K/mcL (4.3-11.1)
[2019-02-03] MEDS: *HR* Heparin 5,000 UNIT/ML VIAL SQ SCH ×3 (05:56→20:43)
[2019-02-03 06:14] LABS: Calcium 9.4 mg/dL (8.6-10.3); Magnesium 1.8 mg/dL (1.6-2.6); Potassium 4.1 mEq/L (3.5-5.1)
[2019-02-03 06:17] LABS: % Iron Saturation 9 % (15-50); Iron 25 mcg/dL (50-170); Transferrin 202 mg/dL (203-362)
[2019-02-03 06:35] LABS: Ferritin 137 ng/mL (10-120)
[2019-02-03] MEDS: Lactobacillus 1 EACH CAP.SPRINK PO SCH ×2 (07:23→20:43)
[2019-02-03] MEDS: Famotidine 20 MG TABLET PO SCH ×2 (07:23→15:58)
[2019-02-03] MEDS: Multivit/Ca/Min/Fe/FA 1 TAB TABLET PO SCH (07:23)
[2019-02-03] MEDS: Insulin LISPRO 300 UNITS/3 ML VIAL SQ SCH ×3 (07:24→16:10)
[2019-02-03] MEDS: *HR* Ticagrelor 90 MG TABLET PO SCH ×2 (07:24→20:43)
[2019-02-03] MEDS: Pregabalin 75 MG CAPSULE PO SCH ×2 (07:24→20:43)
[2019-02-03] MEDS: Aspirin 81 MG TAB.CHEW PO SCH (07:24)
[2019-02-03 07:48] LABS: Folate > 22.3 ng/mL (3.0-16.0); Vitamin B12 687 pg/mL (250-1100)
[2019-02-03] MEDS: cefTRIAXone 2,000 MG in 0.9 % Sodium Chloride Mini Bag 100 ML IVPB SCH (12:03)
[2019-02-04] MEDS: *HR* Heparin 5,000 UNIT/ML VIAL SQ SCH ×2 (05:08→13:44)
[2019-02-04 06:27] LABS: Basophils # 0.1 K/mcL (0.0-0.2); Eosinophils # 0.3 K/mcL (0.0-0.6); Eosinophils % 4.2 %; Hematocrit 35.6 % (35.3-44.9); Hemoglobin 11.3 g/dL (11.5-15.4); Immature Granulocytes % 3.1 % (0-4); Lymphocytes # 2.1 K/mcL (0.6-4.6); Lymphocytes % 27.2 %; Mean Corpuscular HGB Conc 31.7 g/dL (31.6-35.5); Mean Corpuscular Hemoglobin 30.1 pg (28.0-33.3); Mean Corpuscular Volume 94.9 fL (83.0-100.0); Mean Platelet Volume 10.9 fL (9.4-12.4); Monocytes # 0.6 K/mcL (0.0-1.3); Monocytes % 7.8 %; Neutrophils # 4.4 K/mcL (1.6-8.9); Platelet Count 255 K/mcL (140-400); Red Blood Count 3.75 M/mcL (3.82-4.97); Red Cell Distribution Width 13.2 % (11.5-14.5); Segmented Neutrophils % 56.7 %; White Blood Count 7.8 K/mcL (4.3-11.1)
[2019-02-04 08:41] LABS: Calcium 9.2 mg/dL (8.6-10.3); Magnesium 1.8 mg/dL (1.6-2.6); Potassium 4.3 mEq/L (3.5-5.1)
[2019-02-04] MEDS: Pregabalin 75 MG CAPSULE PO SCH (08:43)
[2019-02-04] MEDS: *HR* Ticagrelor 90 MG TABLET PO SCH (08:43)
[2019-02-04] MEDS: Lactobacillus 1 EACH CAP.SPRINK PO SCH (08:43)
[2019-02-04] MEDS: Famotidine 20 MG TABLET PO SCH (08:43)
[2019-02-04] MEDS: Multivit/Ca/Min/Fe/FA 1 TAB TABLET PO SCH (08:44)
[2019-02-04] MEDS: Insulin LISPRO 300 UNITS/3 ML VIAL SQ SCH ×2 (08:44→14:58)
[2019-02-04] MEDS: Aspirin 81 MG TAB.CHEW PO SCH (08:44)
[2019-02-04] MEDS ORDERED: Insulin DETEMIR 100 UNIT/ML X5UNITS SQ SCH (09:00)
[2019-02-04 11:17] VITALS: BP 113/68
[2019-02-04] MEDS: cefTRIAXone 2,000 MG in 0.9 % Sodium Chloride Mini Bag 100 ML IVPB SCH (13:44)
== END 2019-02-04 15:42 | disposition home health service (06) | DRG 720 ==
LOC: 2NNU → SUATTDRO 19:04 → 3ANU 02-03 13:48
PROVIDERS: ADMIT Internal Medicine; ATTEND Pharmacist

== ENCOUNTER 2021-12-11 16:51 | Observation (INO) ==
[2021-12-11] MEDS ORDERED: Melatonin 3 MG TABLET PO PRN (18:52)
[2021-12-11] MEDS ORDERED: Ondansetron 4 MG/2 ML VIAL IVP PRN (18:52)
[2021-12-11] MEDS ORDERED: Naloxone 0.4 MG/ML INJ IVP PRN ×2 (18:52→19:30)
[2021-12-11] MEDS: 0.9 % Sodium Chloride 1,000 ML IVC SCH (22:15)
[2021-12-12 02:58] LABS: INR 1.1
[2021-12-12 03:13] LABS: Estimated Average Glucose 148 mg/dl; Hemoglobin A1C 6.8 %
[2021-12-12 03:16] LABS: Alanine Aminotransferase 31 Units/L (7-52); Albumin 3.3 g/dL (3.5-5.7); Albumin/Globulin Ratio 1.2 (1.1-2.2); Alkaline Phosphatase 45 Units/L (34-104); Aspartate Amino Transferase 38 Units/L (13-39); BUN/Creatinine Ratio 16 (6-26); Bilirubin,Total 0.3 mg/dL (0.3-1.0); Blood Urea Nitrogen 17 mg/dL (8-23); Calcium 8.7 mg/dL (8.6-10.3); Carbon Dioxide 25 mEq/L (23-29); Chloride 106 mEq/L (98-107); Chol/HDL Ratio 3.9 (0-4.9); Cholesterol 150 mg/dL (< 200); Globulin 2.7 g/dL (2.4-3.5); Glucose 129 mg/dL (70-105); HDL Cholesterol 38 mg/dL (40-59); LDL Cholesterol,Calculated 92 mg/dL (< 100); Osmolality,Calculated 287 (280-300); Potassium 3.7 mEq/L (3.5-5.1); Sodium 137 mEq/L (136-145); Triglycerides 101 mg/dL (< 150); Troponin I < 0.03 ng/mL (< 0.04)
[2021-12-12 07:34] VITALS: BP 139/75
[2021-12-12] MEDS ORDERED: Aspirin Enteric Coated 81 MG Tablet PO SCH (09:00)
[2021-12-12] MEDS: 0.9 % Sodium Chloride 1,000 ML IVC SCH (09:38)
[2021-12-12 11:45] VITALS: PULSE 78; TEMP 97.9; O2SAT 94
== END 2021-12-12 14:33 | disposition home health service (06) ==
LOC: 3BNU → SUATTDRO 18:21
PROVIDERS: ADMIT Hospitalist; ATTEND Registered Nurse